=== PATIENT | male | born 1965 | race Two or more races ===

== ENCOUNTER 2019-09-28 14:43 | Inpatient (IN) | payer SELFPAY ==
[~2019-09-28] VITALS: Ht 165.1 cm; Wt 81.6 kg
--- NOTE | ~2019-09-28 | EC ---
PATIENT:ALAN HUNT DATE OF SERVICE: 09/28/19 SEX: M MEDICAL RECORD: [id number] DATE OF : 61 LOCATION:D.MS [place] AGE OF PATIENT: 53 ADMISSION DATE: 09/28/19 REFERRING PHYSICIAN: INTERPRETING PHYSICIAN: CHERYL TURK MD ECHOCARDIOGRAM REPORT ECHO CHARGES 4 ECHO COMPLETE Date: 10/03/19 CLINICAL DIAGNOSIS: STAPH/ACITIES ECHOCARDIOGRAPHIC MEASUREMENTS (adult normal given) AC root (d.<3.7cm) 3.3 cm LV Septum d (<1.2 cm> 1.5 cm Valve Excursion 1.8 cm LV Septum (systole) 1.7 cm Left Atria (s.<4.0cm> 5.1 cm LVPW d(<1.2cm) 2.0 cm RV (d.<2.3cm) 5.5 cm LVPW (sytole) 2.3 cm LV diastole(<5.6CM) 6.9 cm MV E-F(>70mm/sec) cm LV systole 4.6 cm LVOT Diameter 2.2 cm MV exc.(>10mm) 2.4 cm Est.ejection fraction (50-75%) % DOPPLER: LVIT cm/sec A 59.0 cm/sec E 88.0 cm/sec LA cm/sec RVSP 52 mmHg LVOT 137 cm/sec AOP1/2T m/s Asc. Ao 163 cm/sec RVOT 122 cm/sec RA cm/sec PA 169 cm/sec AV Gradient Peak 10.57mmHg AV Mean 6.383mmHg AV Area 3.2 cm MV Gradient Peak 4.67 mmHg MV Mean 1.83 mmHg MV Area cm COMMENTS: Secretary To Board Of Commissioners: Felicia LIN Care Trainer: 1 Dr. Turk TAPE# PACS Pericardial Effusion N DATE OF SERVICE: 10/03/2019 ECHOCARDIOGRAM FINDINGS: 1. Left ventricular chamber size is mildly dilated. Left ventricular systolic function is preserved at 55%. 2. Left atrium is enlarged at 5.1 cm. Right atrium and right ventricular chamber sizes are as well mildly dilated. 3. Valvular structures have normal structure and motion. ECHOCARDIOGRAM REPORT [id number] ALAN HUNT 4. Doppler interrogation reveals mild mitral regurgitation, mild tricuspid regurgitation, no other valvular insufficiency or stenosis. Pulmonary systolic pressure is estimated 52 mmHg. 5. No evidence of pericardial effusion or left ventricular thrombus. TRANSINT:[id number] Voice Confirmation ID: [id number] DOCUMENT ID: [id number] CHERYL TURK MD CC: [id number] DICTATION DATE: 10/03/19 125 HEALTH CARE / MEDICAL JOB TITLES: 10/03/19 1950 DIS IN 10/03/19 [facility] [address] [place] [id number]
[2019-09-28 15:19] VITALS: BP 142/80
[2019-09-28 15:25] LABS: BASOPHILS 0.2 % (0-2); EOSINOPHILS 0.8 % (0-7); IMMATURE GRANULOCYTES 1.2 % (0-5); LYMPHOCYTES 6.4 % (15-50); MCH 26.5 pg (26.0-34.0); MCHC 31.4 g/dL (31.0-37.0); MCV 84.6 fL (80.0-100.0); MEAN PLATELET VOLUME 10.5 fL (7.4-10.4); MONOCYTES 10.7 % (2-11); NEUTROPHILS 80.7 % (40-80); PLATELET COUNT 236 10x3/uL (130-400); RDW 16.7 % (11.5-14.5); WBC 6.1 10x3/uL (4.8-10.8)
[2019-09-28 15:33] LABS: INR 1.34 (0.85-1.17)
[2019-09-28 15:35] LABS: HEMOGLOBIN 6.9 g/dL (13.5-17.5)
[2019-09-28 15:51] LABS: CALC OSMOLALITY 280 mosm/kg (275-300); CALCIUM 7.4 mg/dL (8.5-10.1); CARBON DIOXIDE 23.4 mmol/L (21.0-32.0); CHLORIDE - SERUM 106 mmol/L (98-107); CREATININE - SERUM 3.8 mg/dL (0.6-1.3); GLUCOSE 97 mg/dL (74-106); POTASSIUM - SERUM 4.1 mmol/L (3.5-5.1); SODIUM 136 mmol/L (136-145); UREA NITROGEN 39 mg/dL (7-18); eGFR NON AFRICAN AMERICAN 18 mL/min (90-120)
[2019-09-28 15:55] LABS: ALBUMIN 1.1 g/dL (3.4-5.0); ALKALINE PHOSPHATASE 194 U/L (46-116); ALT (SGPT) 31 U/L (10-68); AMYLASE - SERUM 85 U/L (25-115); BILIRUBIN - TOTAL 0.31 mg/dL (0.2-1.3); LIPASE 310 U/L (73-393); PROTEIN - SERUM 6.1 g/dL (6.4-8.2)
[2019-09-28 15:56] LABS: TROPONIN-I < 0.017 ng/mL (0.000-0.060)
[2019-09-28 16:15] VITALS: BP 143/75
--- NOTE | 2019-09-28 16:37 | NUR ---
PT RECIEVED FROM ER, NO SIGNS OF DISTRESS. IV TO RIGHT AC PATENT NO REDNESS OR TENDERNESS. DENIES ANY FURTHER NEED AT THIS TIME. CALL LIGHT IN REACH. BED LOW POSITION. NO FAMILY AT BEDSIDE.
[2019-09-28 16:41] VITALS: BP 151/75
[2019-09-28 17:18] LABS: APPEARANCE CLEAR (CLEAR); BILIRUBIN NEGATIVE (NEGATIVE); COLOR YELLOW (YELLOW); GLUCOSE NEGATIVE (NEGATIVE); KETONE NEGATIVE (NEGATIVE); NITRITE NEGATIVE (NEGATIVE); PROTEIN 1+ mg/dL (NEGATIVE); SPECIFIC GRAVITY 1.015 (1.005-1.020); UROBILINOGEN NORMAL (NORMAL)
[2019-09-28 20:00] VITALS: BP 148/81
[2019-09-29] VITALS (11 sets, daily range): BP systolic 139–161; BP diastolic 75–89; BMI 29.9
[2019-09-29 01:20] LABS: HEMATOCRIT 23.9 % (42.0-54.0)
[2019-09-29 01:21] LABS: HEMOGLOBIN 7.5 g/dL (13.5-17.5)
[2019-09-29 06:12] LABS: BASOPHILS 0.2 % (0-2); EOSINOPHILS 1.6 % (0-7); HEMATOCRIT 24.7 % (42.0-54.0); HEMOGLOBIN 7.7 g/dL (13.5-17.5); IMMATURE GRANULOCYTES 0.9 % (0-5); LYMPHOCYTES 6.9 % (15-50); MCH 26.1 pg (26.0-34.0); MCHC 31.2 g/dL (31.0-37.0); MCV 83.7 fL (80.0-100.0); MEAN PLATELET VOLUME 10.1 fL (7.4-10.4); MONOCYTES 11.8 % (2-11); NEUTROPHILS 78.6 % (40-80); PLATELET COUNT 215 10x3/uL (130-400); RBC 2.95 10x6/uL (4.20-6.10); RDW 16.9 % (11.5-14.5); WBC 5.5 10x3/uL (4.8-10.8)
[2019-09-29 06:34] LABS: % SATURATION 14 % (15-55); ANION GAP 13.4 mmol/L (8-16); CALCIUM 7.1 mg/dL (8.5-10.1); CARBON DIOXIDE 23.1 mmol/L (21.0-32.0); CREATININE - SERUM 3.9 mg/dL (0.6-1.3); IRON 22 ug/dl (35-150); MAGNESIUM - SERUM 1.7 mg/dL (1.8-2.4); PHOSPHOROUS 4.6 mg/dL (2.5-4.9); POTASSIUM - SERUM 4.5 mmol/L (3.5-5.1); TOTAL IRON BIND CAPACITY 155 ug/dl (260-445); UNSAT IRON BIND CAPACITY 133 ug/dl (150-375)
[2019-09-29 06:41] LABS: INR 1.35 (0.85-1.17); PROTIME 16.1 SECONDS (11.6-15.0)
--- NOTE | 2019-09-29 07:10 | NUR ---
PT RESTING IN BED. NO SIGNS OF DISTRESS. IV TO RIGHT AC PATENT NO REDNESS OR TENDERNESS. ABDOMEN DISTENTED. GOING FOR PROCEDURE. DENIES ANY FURTHER NEED AT THIS TIME. CALL LIGHT IN REACH. BED LOW POSITION. NO FAMILY AT BEDSIDE AT THIS TIME.
[2019-09-29 11:10] LABS: PROTEIN - BODY FLUID 1.1 G/DL
[2019-09-29 12:10] LABS: EOS BF 1 %; MACROPHAGES BF 22 %; MESOTHELIALS BF 4 %; NEUT - BF 29 %
--- NOTE | 2019-09-29 16:02 | NUR ---
I have reviewed this patient and I concur with the Shift Assessment completed by the Licensed Practical Nurse today this shift.
--- NOTE | 2019-09-29 19:15 | NUR ---
PATIENT LYING IN BED SLEEPING. PAITENT OPENS EYES WHEN SPOKEN TO. PATIENT REQUESTED A SNACK AND PAIN MEDICINE. STATES HE HAS NO OTHER NEEDS AT THIS TIME. BED RAILS X2. CALL LIGHT AND BEDSIDE TABLE IN REACH.
[2019-09-29 21:51] LABS: HEMATOCRIT 27.4 % (42.0-54.0); HEMOGLOBIN 8.5 g/dL (13.5-17.5)
[2019-09-30 05:54] VITALS: BP 139/75
[2019-09-30 06:32] LABS: BASOPHILS 0.2 % (0-2); EOSINOPHILS 4.2 % (0-7); HEMATOCRIT 25.5 % (42.0-54.0); HEMOGLOBIN 7.8 g/dL (13.5-17.5); IMMATURE GRANULOCYTES 0.6 % (0-5); LYMPHOCYTES 6.7 % (15-50); MCH 25.8 pg (26.0-34.0); MCHC 30.6 g/dL (31.0-37.0); MCV 84.4 fL (80.0-100.0); MEAN PLATELET VOLUME 10.4 fL (7.4-10.4); MONOCYTES 10.8 % (2-11); NEUTROPHILS 77.5 % (40-80); PLATELET COUNT 203 10x3/uL (130-400); RBC 3.02 10x6/uL (4.20-6.10); RDW 16.9 % (11.5-14.5); WBC 5.3 10x3/uL (4.8-10.8)
[2019-09-30 06:44] LABS: INR 1.38 (0.85-1.17); PROTIME 16.4 SECONDS (11.6-15.0)
[2019-09-30 06:46] LABS: ANION GAP 11.3 mmol/L (8-16); CALCIUM 7.5 mg/dL (8.5-10.1); MAGNESIUM - SERUM 1.9 mg/dL (1.8-2.4); POTASSIUM - SERUM 4.3 mmol/L (3.5-5.1)
--- NOTE | 2019-09-30 08:00 | NUR ---
ASSESSMENT PER FLOW SHEET. PT IS WITHOUT DISTRESS.CALL LIGHT USE INSTRUCTED AND IS IN REACH.MONITOR FOR NEEDS.
[2019-09-30 09:47] VITALS: BP 162/83
[2019-09-30 10:45] VITALS: Ht 165.1 cm; Wt 81.6 kg
[2019-09-30 12:41] LABS: HEMATOCRIT 26.2 % (42.0-54.0); HEMOGLOBIN 8.2 g/dL (13.5-17.5)
[2019-09-30 13:36] VITALS: BP 147/75
--- NOTE | 2019-09-30 15:26 | MORECARE ---
CASE MANAGEMENT DISCHARGE SUMMARY PATIENT: ALAN HUNT UNIT: [id number] ADM DATE: 09/28/19 AGE: 53 : 61 SEX: M ROOM/BED: D.2222 AUTHOR: GARRET BALBUENA PHYSICIAN: REFERRING PHYSICIAN: YASMANY ANN MD DATE OF SERVICE: 09/30/19 Discharge Plan Patient Name: ALAN HUNT [facility] [facility] 1965 Planned Disposition: Anticipated Discharge Date: Discharge Date: Expected LOS: Initial Reviewer: [email or web address] Initial Review Date: 09/30/2019 Generated: 09/30/19 4:26 pm DCPIA - Discharge Planning Initial Assessment Updated by [email or web address]: Trina Tavares on 09/30/19 3:23 pm * Is the patient Alert and Oriented? Yes * How many steps to enter\exit or inside your home? 0/0 * PCP None * Preadmission Environment Homeless * ADLs Independent * Equipment None * List name and contact numbers for known caregivers / representatives who currently or will assist patient after discharge: Kareem Adair [facility] [address] - [phone] * Verbal permission to speak to the caregivers and representatives has been obtained from the patient. Yes * Community resources currently utilized None * Additional services required to return to the preadmission environment? No * Can the patient safely return to the preadmission environment? Yes * Has this patient been hospitalized within the prior 30 days at any hospital? No Patient Name: ALAN HUNT Page [id number] at 1526 All edits/amendments must be made on the electronic document DICTATION DATE: 09/30/19 1526 ASSOCIATE BUSINESS ANALYST: MOISES 09/30/19 152 RPT#: [id number] DC DATE: STATUS: ADM IN [facility] [address] [place] [address] END OF REPORT
--- NOTE | 2019-09-30 15:44 | MORECARE ---
CASE MANAGEMENT DISCHARGE SUMMARY PATIENT: ALAN HUNT UNIT: [id number] ADM DATE: 09/28/19 AGE: 53 : 61 SEX: M ROOM/BED: D.2222 AUTHOR: GARRET BALBUENA PHYSICIAN: REFERRING PHYSICIAN: YASMANY ANN MD DATE OF SERVICE: 09/30/19 Discharge Plan Patient Name: ALAN HUNT Facility: [facility]:[place] : 1965 Planned Disposition: Anticipated Discharge Date: Discharge Date: Expected LOS: Initial Reviewer: [email or web address] Initial Review Date: 09/30/2019 Generated: 09/30/19 4:44 pm Comments DCP- Discharge Planning Updated by [email or web address]: Trina Tavares on 09/30/19 2:[address] Patient Name: ALAN HUNT Admission Status: Elective Accout number: [id number] Admission Date: 09-28-2019 : 1965 Admission Diagnosis: Attending: YASMANY ANN Current LOS: 2 Anticipated DC Date: Planned Disposition: Primary Insurance: UNINSURED DISCOUNT PLAN Discharge Planning Comments: CM met with patient to discuss discharge planning/needs. He is homeless. He states he meets people that help him. His friend, Kareem, listed as electrical contacts adjuster helps him with money. I offered him a list of homeless shelters and food ramos. He refuses to take it from me. I asked him if I could leave it on his table and he says "no, I don't need it." He states he knows where the food ramos and homeless shelters are. He states he feels better and when the doctor says he can leave, he states "I'll just leave." I asked him if he may need help purchasing his medicine and he declines. CM will continue to follow and assist with discharge planning/needs. Manufacturing Technology Analyst: Trina Tavares DCPIA - Discharge Planning Initial Assessment Updated by [email or web address]: Trina Tavares on 09/30/19 3:23 pm * Is the patient Alert and Oriented? Yes * How many steps to enter\\exit or inside your home? 0/0 * PCP None * Preadmission Environment Homeless * ADLs Independent * Equipment None * List name and contact numbers for known caregivers / representatives who currently or will assist patient after discharge: Kareem man - [phone] * Verbal permission to speak to the caregivers and representatives has been obtained from the patient. Yes * Community resources currently utilized None * Additional services required to return to the preadmission environment? No * Can the patient safely return to the preadmission environment? Yes * Has this patient been hospitalized within the prior 30 days at any hospital? No Last DP export: 09/30/19 2:26 Patient Name: ALAN HUNT Page [phone] at 1544 All edits/amendments must be made on the electronic document DICTATION DATE: 09/30/191543 MOVIE EDITOR: MOISES 09/30/191543 RPT#: [id number] DC DATE: STATUS: ADM IN [facility] [address] [place] [address] END OF REPORT
--- NOTE | 2019-09-30 17:00 | NUR ---
IV RESITED TO LEFT FOREARM X1 STICK 22G. IV REMOVED FROM RIGHT FOREARM WITH CATH TIP INTACT. SOME TENDERNESS TO SITE WITH MINIMAL SWELLING NOTED.
[2019-09-30 17:54] VITALS: BP 152/83
--- NOTE | 2019-09-30 18:41 | NUR ---
REMAINS WITHOUT CHANGE.CONT PLAN OF CARE
[2019-09-30 20:00] VITALS: BP 163/82
[2019-10-01] VITALS: BP 150/82
--- NOTE | 2019-10-01 01:59 | NUR ---
PT RESTING IN BED. ALERT AND ORIENTED. NO SIGNS OF DISTRESS. BREATHING EVEN AND UNLABORED. IV SITE LT FA DRESSING CLEAN DRY AND INTACT. NO SIGNS OF INFECTION. ABD DISTENDED. LT LOWER ABD INCISION. BOWEL SOUNDS ACTIVE. NO LOWER LEG SWELLING PRESENT. WILL CONTINUE PLAN OF CARE. CALL LIGHT IN REACH. BED LOWERED AND LOCKED. BED RAILS UPX2.
--- NOTE | 2019-10-01 03:00 | NUR ---
I have reviewed this patient and I concur with the Shift Assessment completed by the Licensed Practical Nurse today this shift.
[2019-10-01 04:00] VITALS: BP 136/74
[2019-10-01 06:38] LABS: BASOPHILS 0.2 % (0-2); EOSINOPHILS 4.7 % (0-7); HEMATOCRIT 26.1 % (42.0-54.0); HEMOGLOBIN 8.3 g/dL (13.5-17.5); IMMATURE GRANULOCYTES 0.8 % (0-5); LYMPHOCYTES 6.5 % (15-50); MCH 26.7 pg (26.0-34.0); MCHC 31.8 g/dL (31.0-37.0); MCV 83.9 fL (80.0-100.0); MEAN PLATELET VOLUME 9.4 fL (7.4-10.4); MONOCYTES 11.7 % (2-11); NEUTROPHILS 76.1 % (40-80); PLATELET COUNT 229 10x3/uL (130-400); RBC 3.11 10x6/uL (4.20-6.10); RDW 16.7 % (11.5-14.5); WBC 6.3 10x3/uL (4.8-10.8)
[2019-10-01 06:53] LABS: ANION GAP 10.7 mmol/L (8-16); CALCIUM 7.3 mg/dL (8.5-10.1); CARBON DIOXIDE 27.5 mmol/L (21.0-32.0); CREATININE - SERUM 4.2 mg/dL (0.6-1.3); MAGNESIUM - SERUM 1.6 mg/dL (1.8-2.4); PHOSPHOROUS 4.5 mg/dL (2.5-4.9); POTASSIUM - SERUM 4.2 mmol/L (3.5-5.1)
[2019-10-01 06:56] LABS: INR 1.44 (0.85-1.17); PROTIME 16.9 SECONDS (11.6-15.0)
--- NOTE | 2019-10-01 08:00 | NUR ---
ASSESSMENT PER FLOW SHEET. PT IS WITHOUT DISTRESS.MONITOR FOR NEEDS
[2019-10-01 08:35] VITALS: BP 149/79
[2019-10-01 13:03] VITALS: BP 169/94
[2019-10-01 17:09] VITALS: BP 153/67
[2019-10-01 17:31] LABS: CREATININE - URINE 36.2 mg/dL (30-125); PRO/CRE RATIO URINE 3.7 mg/g; PROTEIN - URINE 135.2 mg/dL (0.0-11.9)
--- NOTE | 2019-10-01 18:38 | NUR ---
PAGE TO [facility] TO REPORT FOR GRAM POSS BC.
--- NOTE | 2019-10-01 18:40 | NUR ---
PT IS WITHOUT CHANGE FROM INTITIAL SHIFT ASSESSMENT.CONT PLAN OF CARE
--- NOTE | 2019-10-01 18:50 | NUR ---
CALL BACK FROM [facility].CALL TO RENAL TO BAN ABX FOR GRAM POS BC.
--- NOTE | 2019-10-01 19:00 | NUR ---
BEDSIDE REPORT RECEIVED AND CARE OF PT ASSUMED. PT LYING IN LOW SANDHU'S POSITION. IV TO LEFT FA PATENT WITH NS INFUSING AT KVO. WILL MONITOR FOR NEEDS.
--- NOTE | 2019-10-01 19:20 | NUR ---
CALLED [employer] ARCHITECT TO OVERRIDE VANC IVPB.
[2019-10-01 20:00] VITALS: BP 156/83
--- NOTE | 2019-10-01 20:46 | NUR ---
HS MEDICATIONS GIVEN.
[2019-10-02] VITALS: BP 153/81
[2019-10-02 04:00] VITALS: BP 151/80
[2019-10-02 05:59] LABS: BASOPHILS 0.2 % (0-2); EOSINOPHILS 4.4 % (0-7); HEMATOCRIT 27.8 % (42.0-54.0); HEMOGLOBIN 8.6 g/dL (13.5-17.5); IMMATURE GRANULOCYTES 0.5 % (0-5); MCH 25.9 pg (26.0-34.0); MCHC 30.9 g/dL (31.0-37.0); MCV 83.7 fL (80.0-100.0); MEAN PLATELET VOLUME 9.6 fL (7.4-10.4); MONOCYTES 10.9 % (2-11); PLATELET COUNT 272 10x3/uL (130-400); RBC 3.32 10x6/uL (4.20-6.10); RDW 16.6 % (11.5-14.5); WBC 6.6 10x3/uL (4.8-10.8)
[2019-10-02 06:12] LABS: INR 1.37 (0.85-1.17); PROTIME 16.3 SECONDS (11.6-15.0)
[2019-10-02 06:28] LABS: CALCIUM 7.3 mg/dL (8.5-10.1); CARBON DIOXIDE 27.1 mmol/L (21.0-32.0); CREATININE - SERUM 3.9 mg/dL (0.6-1.3); MAGNESIUM - SERUM 1.5 mg/dL (1.8-2.4); PHOSPHOROUS 4.3 mg/dL (2.5-4.9); POTASSIUM - SERUM 4.1 mmol/L (3.5-5.1); VANCOMYCIN - RANDOM 13.2 ug/mL (10.0-20.0)
--- NOTE | 2019-10-02 07:00 | NUR ---
LYING IN BED,AWAKENS INT. HE DENIES NEEDS.CALL LIGHT USE INSTRUCTED.
--- NOTE | 2019-10-02 08:00 | NUR ---
ASSESSMENT PER FLOW SHEET. PT IS WITHOUT DISTRESS.CALL LIGHT IN REACH
[2019-10-02 08:11] VITALS: BP 147/82
[2019-10-02 11:56] LABS: COMPLEMENT C4 19.5 mg/dL (17.4-52.2)
[2019-10-02 12:31] LABS: ERYTHROCYTE SEDIMENTATION RATE 100 mm/hr (0-20)
--- NOTE | 2019-10-02 14:39 | NUR ---
HOPES TO GO HOME SOON. HE HAS BEEN WITHOUT DISTRESS.MONITOR
[2019-10-02 16:33] VITALS: BP 142/70
--- NOTE | 2019-10-02 18:53 | NUR ---
URINE TO LAB ORDERED.PT IS WITHOUT DISTRESS.HE IS WITHOUT CHANGE FROM INITIAL SHIFT ASSESSMENT.CONT PLAN OF CARE
--- NOTE | 2019-10-02 19:00 | NUR ---
PATIENT LYIN IN BED. IV IN LEFT FA, SL, NO REDNESS OR SWELLING. PATIENT STATES HE HAS NO NEEDS AT THIS TIME. BED RAILS X2. CALL LIGHT AND BEDSIDE TABLE WITHIN REACH.
[2019-10-02 20:35] VITALS: BP 133/65
[2019-10-03 01:20] VITALS: BP 136/76
[2019-10-03 05:21] VITALS: BP 164/86
[2019-10-03 05:24] LABS: BASOPHILS 0.2 % (0-2); EOSINOPHILS 3.9 % (0-7); HEMATOCRIT 26.3 % (42.0-54.0); HEMOGLOBIN 8.2 g/dL (13.5-17.5); IMMATURE GRANULOCYTES 0.3 % (0-5); LYMPHOCYTES 6.9 % (15-50); MCHC 31.2 g/dL (31.0-37.0); MCV 83.5 fL (80.0-100.0); MEAN PLATELET VOLUME 10.1 fL (7.4-10.4); MONOCYTES 11.1 % (2-11); NEUTROPHILS 77.6 % (40-80); PLATELET COUNT 256 10x3/uL (130-400); RBC 3.15 10x6/uL (4.20-6.10); RDW 16.7 % (11.5-14.5); WBC 6.2 10x3/uL (4.8-10.8)
[2019-10-03 05:33] LABS: INR 1.37 (0.85-1.17); PROTIME 16.3 SECONDS (11.6-15.0)
[2019-10-03 05:45] LABS: ANION GAP 10.1 mmol/L (8-16); CALCIUM 7.5 mg/dL (8.5-10.1); CARBON DIOXIDE 27.8 mmol/L (21.0-32.0); CREATININE - SERUM 3.8 mg/dL (0.6-1.3); MAGNESIUM - SERUM 1.6 mg/dL (1.8-2.4); POTASSIUM - SERUM 3.9 mmol/L (3.5-5.1); VANCOMYCIN - RANDOM 17.8 ug/mL (10.0-20.0)
[2019-10-03 07:07] LABS: ALBUMIN 1.2 g/dL (3.4-5.0); BILIRUBIN - TOTAL 0.33 mg/dL (0.2-1.3); PROTEIN - SERUM 5.7 g/dL (6.4-8.2)
[2019-10-03 08:01] VITALS: BP 138/74
--- NOTE | 2019-10-03 08:15 | NUR ---
PATIENT IN BED WITH IV INTACT. NO COMPLAINTS OR SIGNS OF DISTRESS. FAMILY AT BEDSIDE. CALL LIGHT WITHIN REACH.
[2019-10-03 08:25] VITALS: BP 147/75
--- NOTE | 2019-10-03 10:45 | NUR ---
PATIENT IN BED WITH EYES CLOSED RESTING QUIETLY. NO COMPLAINTS OR SIGNS OF DISTRESS. CALL LIGHT WITHIN REACH.
[2019-10-03] MEDS ORDERED: ALDACTONE25 MG PO (10:54)
[2019-10-03] MEDS ORDERED: LASIX40 MG PO (10:54)
[2019-10-03] MEDS ORDERED: PROTONIX40 MG PO (10:55)
[2019-10-03] MEDS ORDERED: CARAFATE1 G PO (10:55)
--- NOTE | 2019-10-03 12:03 | MORECARE ---
CASE MANAGEMENT DISCHARGE SUMMARY PATIENT: ALAN HUNT UNIT: [id number] ADM DATE: 09/28/19 AGE: 53 : 61 SEX: M ROOM/BED: D.2222 AUTHOR: GARRET BALBUENA PHYSICIAN: REFERRING PHYSICIAN: YASMANY ANN MD DATE OF SERVICE: 10/03/19 Discharge Plan Patient Name: ALAN HUNT Facility: [facility]:[place] : 1965 Planned Disposition: Anticipated Discharge Date: Discharge Date: Expected LOS: Initial Reviewer: [email or web address] Initial Review Date: 09/30/2019 Generated: 10/03/19 1:03 pm Comments DCP- Discharge Planning Updated by [email or web address]: Trina Tavares on 10/03/19 10:[address] Patient Name: ALAN HUNT Encounter No: [id number] : 1965 Primary Insurance: UNINSURED DISCOUNT PLAN Anticipated DC Date: Planned Disposition: External Planned Provider: : DCP follow-up note: Patient in agreement with discharge plan. No changes to plan. He states a friend will pick him up for discharge. I asked if he would be able to get his 4 new RX and he states "God will provide." He states "I feel much better." I asked if he would like to see if case management could get his medicine for him for this month and he says "yes, if you can." I told him he would need to stop by [facility] pharmacy on [facility] for the RX. I have asked approval from Naida Tatum: Furosemide - 40mg PO twice a day - 11.11 #60 no refill Pantoprazole - 40mg oral twice a day 12.80 #60 no refill Spironolactone 25mg oral - take 50mg des a day #60 - 12.96 no refill Sucralfate 1GM 3 times a day before meals. #36 - 15.53 no refill Trina Tavares DCP- Discharge Planning Updated by [email or web address]: Trina Tavares on 09/30/19 2:[address] Patient Name: ALAN HUNT Admission Status: Elective Accout number: [id number] Admission Date: 09-28-2019 : 1965 Admission Diagnosis: Attending: YASMANY ANN Current LOS: 2 Anticipated DC Date: Planned Disposition: Primary Insurance: UNINSURED DISCOUNT PLAN Discharge Planning Comments: CM met with patient to discuss discharge planning/needs. He is homeless. He states he meets people that help him. His friend, Kareem, listed as personal support worker helps him with money. I offered him a list of homeless shelters and food ramos. He refuses to take it from me. I asked him if I could leave it on his table and he says "no, I don't need it." He states he knows where the food ramos and homeless shelters are. He states he feels better and when the doctor says he can leave, he states "I'll just leave." I asked him if he may need help purchasing his medicine and he declines. CM will continue to follow and assist with discharge planning/needs. University Services Program Associate: Trina Tavares DCPIA - Discharge Planning Initial Assessment Updated by [email or web address]: Trina Tavares on 09/30/19 3:23 pm * Is the patient Alert and Oriented? Yes * How many steps to enter\\exit or inside your home? 0/0 * PCP None * Preadmission Environment Homeless * ADLs Independent * Equipment None * List name and contact numbers for known caregivers / representatives who currently or will assist patient after discharge: Kareem Adair - friend - [phone] * Verbal permission to speak to the caregivers and representatives has been obtained from the patient. Yes * Community resources currently utilized None * Additional services required to return to the preadmission environment? No * Can the patient safely return to the preadmission environment? Yes * Has this patient been hospitalized within the prior 30 days at any hospital? No Last DP export: 09/30/19 2:44 Patient Name: ALAN HUNT Page [id number] at 1203 All edits/amendments must be made on the electronic document DICTATION DATE: 10/03/191202 MORTGAGE BRANCH MANAGER: MOISES 10/03/191202 RPT#: [id number] DC DATE: STATUS: ADM IN [facility] [address] [place] [address] END OF REPORT
--- NOTE | 2019-10-03 14:16 | NUR ---
PATIENT RECIEVED DC INSTRUCTIONS. VERBALIZED UNDERSTANDING. NO QUESTIONS AT THIS TIME. IV REMOVED WITH CATH TIP INTACT. CALL LIGHT WITHIN REACH. WAITING FOR TRANSPORTATION FOR DC. EXPLAINED TO ORAL SURGERY PHYSICIAN MEDS FROM [facility] [place]. VERBALIZED UNDERSTANDING.
--- NOTE | 2019-10-03 15:55 | NUR ---
ESCORTED OUT OF HOSPITAL. AMBULATED PATIENT TO ER WHERE FRIEND IS TO TAKE HIM HOME. PATIENT HAS PAPERWORK AND PERSONAL BELONGINGS.
[2019-10-04 05:08] LABS: HEPATITIS C ANTIBODY <0.1 S/CO RAT (0.0-0.9)
[2019-10-04 10:10] LABS: ANA REFLEX - DIRECT Negative (Negative)
[2019-10-04 11:09] LABS: SPE - A/G RATIO 0.4 (0.7-1.7); SPE - ALBUMIN 1.7 g/dL (2.9-4.4); SPE - ALPHA-1 GLOBULIN 0.4 g/dL (0.0-0.4); SPE - ALPHA-2 GLOBULIN 0.8 g/dL (0.4-1.0); SPE - BETA GLOBULIN 0.9 g/dL (0.7-1.3); SPE - GAMMA GLOBULIN 1.8 g/dL (0.4-1.8); SPE - M-SPIKE 0.4 g/dL (Not Observed); SPE - TOTAL PROTEIN 5.6 g/dL (6.0-8.5)
--- NOTE | 2019-10-04 11:31 | MORECARE ---
CASE MANAGEMENT DISCHARGE SUMMARY PATIENT: ALAN HUNT UNIT: [id number] ADM DATE: 09/28/19 AGE: 53 : 61 SEX: M ROOM/BED: D.2222 AUTHOR: GARRET BALBUENA PHYSICIAN: REFERRING PHYSICIAN: YASMANY ANN MD DATE OF SERVICE: 10/04/19 Discharge Plan Patient Name: ALAN HUNT Facility: [facility]:[place] : 1965 Planned Disposition: Anticipated Discharge Date: Discharge Date: 10/03/2019 Expected LOS: Initial Reviewer: [email or web address] Initial Review Date: 09/30/2019 Generated: 10/04/19 12:30 pm Comments DCP- Discharge Planning Updated by [email or web address]: Trina Tavares on 10/03/19 10:[address] Patient Name: ALAN HUNT Encounter No: [id number] : 1965 Primary Insurance: UNINSURED DISCOUNT PLAN Anticipated DC Date: Planned Disposition: External Planned Provider: : DCP follow-up note: Patient in agreement with discharge plan. No changes to plan. He states a friend will pick him up for discharge. I asked if he would be able to get his 4 new RX and he states "God will provide." He states "I feel much better." I asked if he would like to see if case management could get his medicine for him for this month and he says "yes, if you can." I told him he would need to stop by [facility] pharmacy on [facility] for the RX. I have asked approval from Naida Tatum: Furosemide - 40mg PO twice a day - 11.11 #60 no refill Pantoprazole - 40mg oral twice a day 12.80 #60 no refill Spironolactone 25mg oral - take 50mg des a day #60 - 12.96 no refill Sucralfate 1GM 3 times a day before meals. #36 - 15.53 no refill Trina Tavares DCP- Discharge Planning Updated by [id number]: Trina Tavares on 09/30/19 2:[address] Patient Name: ALAN HUNT Admission Status: Elective Accout number: [id number] Admission Date: 09-28-2019 : 1965 Admission Diagnosis: Attending: YASMANY ANN Current LOS: 2 Anticipated DC Date: Planned Disposition: Primary Insurance: UNINSURED DISCOUNT PLAN Discharge Planning Comments: CM met with patient to discuss discharge planning/needs. He is homeless. He states he meets people that help him. His friend, Kareem, listed as burial needs salesperson helps him with money. I offered him a list of homeless shelters and food ramos. He refuses to take it from me. I asked him if I could leave it on his table and he says "no, I don't need it." He states he knows where the food ramos and homeless shelters are. He states he feels better and when the doctor says he can leave, he states "I'll just leave." I asked him if he may need help purchasing his medicine and he declines. CM will continue to follow and assist with discharge planning/needs. Floor Cashier: Trina Tavares DCPIA - Discharge Planning Initial Assessment Updated by [email or web address]: Trina Tavares on 09/30/19 3:23 pm * Is the patient Alert and Oriented? Yes * How many steps to enter\\exit or inside your home? 0/0 * PCP None * Preadmission Environment Homeless * ADLs Independent * Equipment None * List name and contact numbers for known caregivers / representatives who currently or will assist patient after discharge: Kareem Adair - friend - [phone] * Verbal permission to speak to the caregivers and representatives has been obtained from the patient. Yes * Community resources currently utilized None * Additional services required to return to the preadmission environment? No * Can the patient safely return to the preadmission environment? Yes * Has this patient been hospitalized within the prior 30 days at any hospital? No Last DP export: 10/03/19 11:03 Patient Name: ALAN HUNT Page [id number] at 1131 All edits/amendments must be made on the electronic document DICTATION DATE: 10/04/19 1130 COMMERCIAL DRONE PILOT: MOISES 10/04/19 1130 RPT#: [id number] DC DATE:10/03/19 STATUS: DIS IN [facility] [address] [place] [address] END OF REPORT
[2019-10-06 15:09] LABS: UPE RAND - ALBUMIN 53.3 % (()); UPE RAND - ALPHA 1 GLOBULIN 7.2 % (()); UPE RAND - ALPHA 2 GLOBULIN 6.5 % (()); UPE RAND - BETA GLOBULIN 11.1 % (()); UPE RAND - GAMMA GLOBULIN 21.9 % (())
[2019-10-06 16:08] LABS: ANCA - ANTIMYELOPEROXIDASE <9.0 U/mL (0.0-9.0); ANCA - ANTIPROTEINASE 3 <3.5 U/mL (0.0-3.5); ANCA - ATYPICAL <1:20 titer (Neg:<1:20); ANCA - CYTOPLASMIC <1:20 titer (Neg:<1:20); ANCA - PERINUCLEAR <1:20 titer (Neg:<1:20)
== END 2019-10-03 16:08 | disposition home or self-care (01) | DRG 432 ==
LOC: D.ER 14:43 → D.MS 15:57 → D.SDCHOLD 09-29 12:34 → D.MS 10-03 16:08
PROVIDERS: Emergency Medicine; General Practice; Internal Medicine Nephrology; ADMIT Internal Medicine Nephrology; ATTEND Internal Medicine Nephrology
PROC: 0W9G3ZZ Drainage of Peritoneal Cavity, Percutaneous Approach (ICD-10-PCS; principal; 2019-09-29 09:12)
DX: K70.31 Alcoholic cirrhosis of liver with ascites (principal); E43 Unspecified severe protein-calorie malnutrition; N17.9 Acute kidney failure, unspecified; J90 Pleural effusion, not elsewhere classified; N18.4 Chronic kidney disease, stage 4 (severe); N04.9 Nephrotic syndrome with unspecified morphologic changes; D64.9 Anemia, unspecified; N28.89 Other specified disorders of kidney and ureter; R16.1 Splenomegaly, not elsewhere classified; I51.7 Cardiomegaly; E53.8 Deficiency of other specified B group vitamins; I12.9 Hypertensive chronic kidney disease with stage 1 through stage 4 chronic kidney disease, or unspecified chronic kidney disease; Z59.0 Homelessness

== ENCOUNTER 2020-02-16 19:19 | Inpatient (IN) | payer SELFPAY ==
[~2020-02-16] VITALS: Ht 165.1 cm; Wt 77.0 kg
[~2020-02-16 19:19] MED LIST: ALDACTONE25 MG PO; CARAFATE1 G PO; LASIX40 MG PO; PROTONIX40 MG PO
[2020-02-16 20:30] LABS: BASOPHILS 0.9 % (0-2); EOSINOPHILS 7.3 % (0-7); HEMATOCRIT 24.9 % (42.0-54.0); IMMATURE GRANULOCYTES 0.2 % (0-5); LYMPHOCYTES 7.7 % (15-50); MCH 26.5 pg (26.0-34.0); MCHC 28.9 g/dL (31.0-37.0); MCV 91.5 fL (80.0-100.0); MEAN PLATELET VOLUME 9.4 fL (7.4-10.4); NEUTROPHILS 71.9 % (40-80); RBC 2.72 10x6/uL (4.20-6.10); RDW 15.5 % (11.5-14.5); WBC 4.4 10x3/uL (4.8-10.8)
[2020-02-16 20:36] LABS: HEMOGLOBIN 7.2 g/dL (13.5-17.5); PLATELET COUNT 183 10x3/uL (130-400)
[2020-02-16 20:44] LABS: APTT 36.4 SECONDS (22.8-39.4); INR 1.14 (0.85-1.17); PROTIME 14.5 SECONDS (11.6-15.0)
[2020-02-16 20:59] LABS: ANION GAP 13.4 mmol/L (8-16); CALCIUM 7.3 mg/dL (8.5-10.1); CREATININE - SERUM 4.5 mg/dL (0.6-1.3); POTASSIUM - SERUM 4.4 mmol/L (3.5-5.1)
[2020-02-16 21:09] LABS: ALBUMIN 1.6 g/dL (3.4-5.0); BILIRUBIN - TOTAL 0.29 mg/dL (0.2-1.3); C-REACTIVE PROTEIN 7.8 mg/dL (0.0-0.9); MAGNESIUM - SERUM 2.3 mg/dL (1.8-2.4); PROTEIN - SERUM 6.5 g/dL (6.4-8.2); THYROID STIMULATING HORMONE 10.82 uIU/mL (0.36-3.74); TROPONIN-I 0.046 ng/mL (0.000-0.060)
--- NOTE | 2020-02-16 21:34 | NUR ---
PT GIVEN URINAL, DENIES ANY FURTHER NEEDS AT THIS TIME. CALL LIGHT WITHIN REACH. WILL CONTINUE TO MONITOR.
[2020-02-16 21:45] LABS: BILIRUBIN NEGATIVE (NEGATIVE); GLUCOSE NEGATIVE (NEGATIVE); KETONE NEGATIVE (NEGATIVE); NITRITE NEGATIVE (NEGATIVE); UROBILINOGEN NORMAL (NORMAL)
[2020-02-16 21:51] LABS: BACTERIA FEW /hpf (NEGATIVE); EPITHELIAL CELLS OCC /hpf (0-5); RED CELLS - URINE 0-5 /hpf (0-5); WHITE CELLS - URINE RARE /hpf (NEGATIVE)
[2020-02-16 22:00] LABS: UDS - AMPHET NEGATIVE QUAL (NEGATIVE); UDS - BARB NEGATIVE QUAL (NEGATIVE); UDS - BENZO NEGATIVE QUAL (NEGATIVE); UDS - COCAINE NEGATIVE QUAL (NEGATIVE); UDS - OPIATE NEGATIVE QUAL (NEGATIVE); UDS - PCP NEGATIVE QUAL (NEGATIVE); UDS - THC NEGATIVE QUAL (NEGATIVE)
[2020-02-16 23:29] VITALS: BP 170/97; BMI 32.8
[2020-02-17 04:00] VITALS: BP 185/99
[2020-02-17 05:11] LABS: BASOPHILS 0.7 % (0-2); EOSINOPHILS 9.9 % (0-7); LYMPHOCYTES 9.9 % (15-50); MCH 26.8 pg (26.0-34.0); MCHC 29.6 g/dL (31.0-37.0); MCV 90.6 fL (80.0-100.0); MEAN PLATELET VOLUME 9.9 fL (7.4-10.4); MONOCYTES 11.6 % (2-11); NEUTROPHILS 67.9 % (40-80); PLATELET COUNT 171 10x3/uL (130-400); RBC 2.54 10x6/uL (4.20-6.10); RDW 15.4 % (11.5-14.5); WBC 4.1 10x3/uL (4.8-10.8)
[2020-02-17 05:28] LABS: ALBUMIN 1.3 g/dL (3.4-5.0); ANION GAP 10.4 mmol/L (8-16); BILIRUBIN - TOTAL 0.26 mg/dL (0.2-1.3); CALCIUM 7.4 mg/dL (8.5-10.1); CARBON DIOXIDE 22.8 mmol/L (21.0-32.0); CREATININE - SERUM 4.6 mg/dL (0.6-1.3); MAGNESIUM - SERUM 2.2 mg/dL (1.8-2.4); PHOSPHOROUS 5.1 mg/dL (2.5-4.9); POTASSIUM - SERUM 4.2 mmol/L (3.5-5.1); PROTEIN - SERUM 6.3 g/dL (6.4-8.2); T4 THYROXIN - FREE 1.02 ng/dL (0.76-1.46)
[2020-02-17 06:14] LABS: HEMOGLOBIN 6.8 g/dL (13.5-17.5)
--- NOTE | 2020-02-17 06:24 | NUR ---
NOTIFIED RADHA HOPKINS APN OF CRITICAL HEMOGLOBIN. NO ORDERS TO TRANSFUSE AT THIS TIME.
--- NOTE | 2020-02-17 07:34 | NUR ---
ASSESSMENT DONE. DENIES NEEDS
[2020-02-17 10:17] VITALS: BP 165/102
--- NOTE | 2020-02-17 11:00 | NUR ---
I have reviewed this patient and I concur with the Shift Assessment completed by the Licensed Practical Nurse today this shift.
[2020-02-17 14:42] VITALS: BP 164/94
--- NOTE | 2020-02-17 16:25 | NUR ---
RETURN FROM IR, 4.7 L REMOVED FROM ABD. NO ANESTHESIA USED.
--- NOTE | 2020-02-17 17:10 | NUR ---
WITHOUT CHANGES OR DISTRESS NOTED AT THS TIME.
[2020-02-17 17:15] LABS: HEMATOCRIT 28.5 % (42.0-54.0); HEMOGLOBIN 8.4 g/dL (13.5-17.5)
--- NOTE | 2020-02-17 19:43 | NUR ---
PT CO PAIN AT INCISION SITE. REQUESTING PRN PAIN MEDICATION AT THIS TIME
--- NOTE | 2020-02-17 20:18 | NUR ---
PT FOUND RESTING COMFORTABLY EVEN RISE AND FALL OF CHEST, AROUSED TO VOICE, DENIES PAIN REQUESTS A CUP OF ICE AND ORANGE JUICE
[2020-02-17 21:21] VITALS: BP 176/107
--- NOTE | 2020-02-17 23:29 | NUR ---
PATIENT RECEIVED PRN PAIN MEDICATION PER REQUEST SEE MAR FOR ADMINISTRATION
[2020-02-18 00:01] VITALS: BP 162/90
[2020-02-18 04:00] VITALS: BP 144/77
--- NOTE | 2020-02-18 04:31 | NUR ---
PT RESTING COMFORTABLY, LAB AT BEDSIDE, DENIES NEEDS
--- NOTE | 2020-02-18 04:51 | NUR ---
PT REFUSING TELEMETRY
[2020-02-18 05:04] LABS: HEMATOCRIT 27.5 % (42.0-54.0); HEMOGLOBIN 8.5 g/dL (13.5-17.5); LYMPHOCYTES 9.4 % (15-50); MCH 27.7 pg (26.0-34.0); MCHC 30.9 g/dL (31.0-37.0); MCV 89.6 fL (80.0-100.0); MEAN PLATELET VOLUME 9.7 fL (7.4-10.4); NEUTROPHILS 72.4 % (40-80); PLATELET COUNT 168 10x3/uL (130-400); RDW 15.2 % (11.5-14.5)
[2020-02-18 05:08] LABS: RBC 3.07 10x6/uL (4.20-6.10)
[2020-02-18 05:22] LABS: ALBUMIN 1.5 g/dL (3.4-5.0); ANION GAP 11.2 mmol/L (8-16); BILIRUBIN - TOTAL 0.36 mg/dL (0.2-1.3); CALCIUM 7.7 mg/dL (8.5-10.1); CARBON DIOXIDE 24.9 mmol/L (21.0-32.0); CREATININE - SERUM 4.7 mg/dL (0.6-1.3); POTASSIUM - SERUM 4.1 mmol/L (3.5-5.1); PROTEIN - SERUM 6.9 g/dL (6.4-8.2)
--- NOTE | 2020-02-18 05:56 | NUR ---
PATIENT RECEIVED AM MEDICATIONS AND COFFEE PER REQUEST
--- NOTE | 2020-02-18 07:30 | NUR ---
LAYING SUPINE, RR EVEN AND UNLABORED. DENIES NEEDS OR PAIN AT THIS TIME. CALL LIGHT WITHIN REACH. BED IN LOWEST POSITION. WILL CONTINUE TO MONITOR.
[2020-02-18 08:36] VITALS: BP 146/82
[2020-02-18 12:46] VITALS: BP 170/71
--- NOTE | 2020-02-18 12:48 | NUR ---
I HAVE REVIEWED THIS PATIENT AND CONCUR WITH THE ASSESSMENT OF THE STAVE LOG RIPSAW OPERATOR FOR THIS SHIFT. RESTING IN BED, NO DISTRESS.
[2020-02-18 16:38] VITALS: BP 174/99
[2020-02-18 20:00] VITALS: BP 165/90
--- NOTE | 2020-02-18 20:00 | NUR ---
ALERT RESTING IN BED DENIES PAIN OR NEEDS AT THIS TIME SEE SHIFT ASSESSMENT, CALL LIGHT IN REACH
--- NOTE | 2020-02-18 22:00 | NUR ---
LACTULOSE GIVEN ORDERED, PT THEN UP TO SINK AND VOMITING
[2020-02-19] VITALS: BP 154/82
[2020-02-19 04:00] VITALS: BP 164/89
[2020-02-19 05:39] LABS: HEMATOCRIT 27.3 % (42.0-54.0); HEMOGLOBIN 8.5 g/dL (13.5-17.5); LYMPHOCYTES 8.3 % (15-50); MCH 27.7 pg (26.0-34.0); MCHC 31.1 g/dL (31.0-37.0); MCV 88.9 fL (80.0-100.0); NEUTROPHILS 78.3 % (40-80); PLATELET COUNT 146 10x3/uL (130-400); RBC 3.07 10x6/uL (4.20-6.10); RDW 14.8 % (11.5-14.5); WBC 4.2 10x3/uL (4.8-10.8)
[2020-02-19 05:53] LABS: ALBUMIN 1.4 g/dL (3.4-5.0); ANION GAP 10.6 mmol/L (8-16); BILIRUBIN - TOTAL 0.37 mg/dL (0.2-1.3); CALCIUM 7.5 mg/dL (8.5-10.1); CARBON DIOXIDE 24.6 mmol/L (21.0-32.0); CREATININE - SERUM 5.2 mg/dL (0.6-1.3); POTASSIUM - SERUM 4.2 mmol/L (3.5-5.1); PROTEIN - SERUM 6.6 g/dL (6.4-8.2)
[2020-02-19 08:26] VITALS: BP 156/87
[2020-02-19 12:49] VITALS: BP 104/90
[2020-02-19 15:59] VITALS: BP 163/89
--- NOTE | 2020-02-19 17:20 | NUR ---
I have reviewed this patient and I concur with the Shift Assessment completed by the Licensed Practical Nurse today this shift.
[2020-02-19 20:00] VITALS: BP 168/95
--- NOTE | 2020-02-19 22:06 | NUR ---
INITIAL ROUNDS COMPLETED AT 1915 HRS. PT DENIED ANY DISCOMFORT. ASSESSMENT COMPLETED AT 1940 HRS. VSS. ALERT AND ORIENTED TO PERSON, PLACE AND TIME. ARRIETA. IV TO R WRIST SL. LUNGS DIMINISHED IN BASES BILAT. ABD DISTENDED WITH ACTIVE BS NOTED. ARRIETA. PALPABLE PERIPHERAL PULSES. PM MEDS IGVEN.L IV OCCLUDEDA ND DC'D WITH CATHETER INTACT. NEW IV STARTED #20 TO LFA WITH ATTEMPT X2. PT TOLERATED ACTIVITY WELL. SR UP X1,CALL LIGHT WITHIN REACH.
--- NOTE | 2020-02-19 23:52 | NUR ---
PT RESTING WITH EYES CLOSED. RESP EVEN AND REGULAR. SR UP X1, CALL LIGHT WITHIN REACH.
[2020-02-20] VITALS: BP 157/84
--- NOTE | 2020-02-20 02:21 | NUR ---
APPLE JUICE GIVEN PER REQUEST. DENIES ANY DISCOMOFRT. CALL LIGHT WITHIN REACH.
[2020-02-20 04:00] VITALS: BP 156/83
--- NOTE | 2020-02-20 04:16 | NUR ---
PT RESTING WITH EYES CLOSED. RESP EVEN AND REGULAR. SR UP X1, CALL LIGHT WITHIN REACH.
--- NOTE | 2020-02-20 05:47 | NUR ---
VSS THROUGHOUT NIGHT. PT DENIED ANY DISCOMFORT. NEEDS MET; WILL CONTINUE TO MONITOR.
[2020-02-20 05:58] LABS: ALBUMIN 1.3 g/dL (3.4-5.0); ANION GAP 10.3 mmol/L (8-16); BILIRUBIN - TOTAL 0.31 mg/dL (0.2-1.3); CALCIUM 7.5 mg/dL (8.5-10.1); CARBON DIOXIDE 25.7 mmol/L (21.0-32.0); CREATININE - SERUM 5.4 mg/dL (0.6-1.3); PROTEIN - SERUM 6.1 g/dL (6.4-8.2); T4 THYROXIN - FREE 1.06 ng/dL (0.76-1.46); THYROID STIMULATING HORMONE 6.11 uIU/mL (0.36-3.74)
--- NOTE | 2020-02-20 07:22 | NUR ---
REPORT RECEVED FROM VALUE ENGINEER AND PATIENT CARE ASSUMED. PATIENT LAYING IN BED ON BACK AWAKE, ALERT AND ORIENTED X 4. PATIENT IS STABLE AND VSS. PATIENT DENIES ANY NEEDS OR PAIN. WILL CONTINUE WITH PLAN OF CARE. SR UP X 2 BED IN LOW POSITION AND CALL LIGHT IN REACH.
[2020-02-20 07:50] LABS: HEMOGLOBIN 7.8 g/dL (13.5-17.5); MCH 27.4 pg (26.0-34.0); MCHC 31.2 g/dL (31.0-37.0); MCV 87.7 fL (80.0-100.0); MEAN PLATELET VOLUME 10.1 fL (7.4-10.4); RBC 2.85 10x6/uL (4.20-6.10); RDW 14.4 % (11.5-14.5)
[2020-02-20 07:51] LABS: PLATELET COUNT 229 10x3/uL (130-400); WBC 6.3 10x3/uL (4.8-10.8)
[2020-02-20 08:35] VITALS: BP 168/90
[2020-02-20 09:08] LABS: THYROGLOBULIN ANTIBODY <1.0 IU/mL (0.0-0.9); THYROID PEROXIDASE ABS 25 IU/mL (0-34)
[2020-02-20 11:50] LABS: EOSINOPHILS 5 % (0-7); HOWELL JOLLY BODIES OCC; LYMPHOCYTES 15 % (15-50); MONOCYTES 8 % (2-11); NEUTROPHILS 72 % (40-80)
[2020-02-20 11:51] LABS: ACANTHOCYTES OCC; ANISOCYTOSIS OCC; CRENATED CELLS OCC; ROULEAUX OCC; SMUDGE CELLS OCC
[2020-02-20 11:52] LABS: PLATELET ESTIMATE NORMAL; PLATELET MORPHOLOGY PLT CLUMPS PRESENT
[2020-02-20 12:28] LABS: % SATURATION 15 % (15-55); IRON 32 ug/dl (35-150); TOTAL IRON BIND CAPACITY 207 ug/dl (260-445); UNSAT IRON BIND CAPACITY 175 ug/dl (150-375)
[2020-02-20 13:15] VITALS: BP 148/53
--- NOTE | 2020-02-20 15:30 | NUR ---
PATIENT LAYING IN BED WATCHING TV. INSTRUCTED PATIENT THAT STOOL SPECIMEN NEEDED. PATIENT HAS NOT HAD A BM DESPITE TAKING LACTULOSE. PATIENT IS STABLE AND VSS. PATIENT DENIES ANY NEEDS OR PAIN. WILL CONTINUE WITH PLAN OF CARE. SR UP X 2 BED IN LOW POSITION AND CALL LIGHT IN REACH.
[2020-02-20 18:23] VITALS: BP 158/94
--- NOTE | 2020-02-20 18:23 | NUR ---
PATIENT HAS HAD NO BM. ATTEMPTING TO GET STOOL SPECIMEN.
[2020-02-20 20:54] VITALS: BP 165/84
[2020-02-21 00:30] VITALS: BP 160/80
[2020-02-21 06:28] VITALS: BP 131/68
[2020-02-21 07:10] LABS: HEMATOCRIT 29.5 % (42.0-54.0); HEMOGLOBIN 9.2 g/dL (13.5-17.5); LYMPHOCYTES 9.3 % (15-50); MCH 27.5 pg (26.0-34.0); MCHC 31.2 g/dL (31.0-37.0); MCV 88.3 fL (80.0-100.0); MEAN PLATELET VOLUME 10.2 fL (7.4-10.4); NEUTROPHILS 72.2 % (40-80); RBC 3.34 10x6/uL (4.20-6.10); RDW 14.9 % (11.5-14.5)
[2020-02-21 07:14] LABS: PLATELET COUNT 168 10x3/uL (130-400); WBC 3.6 10x3/uL (4.8-10.8)
[2020-02-21 07:16] LABS: ALBUMIN 1.4 g/dL (3.4-5.0); ANION GAP 11.3 mmol/L (8-16); BILIRUBIN - TOTAL 0.31 mg/dL (0.2-1.3); CALCIUM 7.6 mg/dL (8.5-10.1); CARBON DIOXIDE 25.9 mmol/L (21.0-32.0); CREATININE - SERUM 5.4 mg/dL (0.6-1.3); POTASSIUM - SERUM 4.2 mmol/L (3.5-5.1); PROTEIN - SERUM 5.9 g/dL (6.4-8.2)
[2020-02-21 09:14] VITALS: BP 154/85
--- NOTE | 2020-02-21 14:36 | MORECARE ---
CASE MANAGEMENT DISCHARGE SUMMARY PATIENT: ALAN HUNT UNIT: [id number] ADM DATE: 02/16/20 AGE: 54 : 61 SEX: M ROOM/BED: D.2112 AUTHOR: GARRET BALBUENA PHYSICIAN: REFERRING PHYSICIAN: YASMANY ANN MD DATE OF SERVICE: 02/21/20 Discharge Plan Patient Name: ALAN HUNT Facility: [facility]:[place] : 1965 Planned Disposition: Home Anticipated Discharge Date: Discharge Date: Expected LOS: Initial Reviewer: [email or web address] Initial Review Date: 02/21/2020 Generated: 02/21/20 3:36 pm Comments DCP- Discharge Planning Updated by [email or web address]: Neeta Poole on 02/21/20 1:[address] Patient Name: ALAN HUNT Admission Status: ER Accout number: [id number] Admission Date: 02-16-2020 : 1965 Admission Diagnosis:SHORTNESS OF BREATH Attending: YASMANY ANN Current LOS: 5 Anticipated DC Date: Planned Disposition: Primary Insurance: UNINSURED DISCOUNT PLAN Discharge Planning Comments: CM met with patient at bedside after explaining CM role and obtaining verbal consent. Patient lives at home alone where he is independent with his care and plans to return there upon discharge. Patient feels this would be a safe discharge. CM discussed availability / needs of home health and medical equipment. Patient denies any discharge needs at this time. CM explained if he needs help with medications to let us know. Patient states he will have his friend drive him home upon discharge. CM will continue to follow and assist as needed with discharge planning / needs. Animal Control Supervisor: Neeta Poole DCPIA - Discharge Planning Initial Assessment Updated by [email or web address]: Neeta Poole on 02/21/20 2:32 pm * Is the patient Alert and Oriented? Yes * How many steps to enter\exit or inside your home? * PCP NO PCP * [facility] * Preadmission Environment Home Alone * ADLs Independent * Equipment None * List name and contact numbers for known caregivers / representatives who currently or will assist patient after discharge: JAMAL LORENZOBA [facility] - [phone] * Verbal permission to speak to the caregivers and representatives has been obtained from the patient. Yes * Community resources currently utilized None * Additional services required to return to the preadmission environment? No * Can the patient safely return to the preadmission environment? Yes * Has this patient been hospitalized within the prior 30 days at any hospital? No Patient Name: ALAN HUNT Page 50950 at 1436 All edits/amendments must be made on the electronic document DICTATION DATE: 02/21/201435 CLINICAL TEAM MANAGER: MOISES 02/21/201435 RPT#: [id number] DC DATE: STATUS: ADM IN [facility] [address] [place] [address] END OF REPORT
[2020-02-21 16:52] VITALS: BP 149/93
--- NOTE | 2020-02-21 17:55 | NUR ---
I have reviewed this patient and I concur with the Shift Assessment completed by the Licensed Practical Nurse today this shift.
[2020-02-21 20:00] VITALS: BP 162/91
--- NOTE | 2020-02-21 20:30 | NUR ---
EVENING ROUNDS COMPLETE. PT LAYING IN BED NO SIGNS OF DISTRESS. CL IN REACH, BED IN LOWEST POSITION. PT DENIES ANY PAIN OR NEEDS AT THIS TIME.
[2020-02-22] VITALS: BP 162/77
[2020-02-22 04:00] VITALS: BP 147/68
[2020-02-22 05:48] LABS: BASOPHILS 0.2 % (0-2); EOSINOPHILS 12.4 % (0-7); HEMATOCRIT 30.5 % (42.0-54.0); HEMOGLOBIN 9.1 g/dL (13.5-17.5); MCH 26.9 pg (26.0-34.0); MCHC 29.8 g/dL (31.0-37.0); MCV 90.2 fL (80.0-100.0); MONOCYTES 10.9 % (2-11); NEUTROPHILS 66.5 % (40-80); PLATELET COUNT 176 10x3/uL (130-400); RBC 3.38 10x6/uL (4.20-6.10); RDW 15.2 % (11.5-14.5)
[2020-02-22 06:22] LABS: ALBUMIN 1.4 g/dL (3.4-5.0); ANION GAP 10.3 mmol/L (8-16); BILIRUBIN - TOTAL 0.33 mg/dL (0.2-1.3); CALCIUM 7.7 mg/dL (8.5-10.1); CARBON DIOXIDE 25.9 mmol/L (21.0-32.0); CREATININE - SERUM 5.5 mg/dL (0.6-1.3); POTASSIUM - SERUM 4.2 mmol/L (3.5-5.1); PROTEIN - SERUM 5.9 g/dL (6.4-8.2)
[2020-02-22 09:35] VITALS: BP 140/67
[2020-02-22 11:08] VITALS: Ht 165.1 cm; Wt 77.0 kg
[2020-02-22] MEDS ORDERED: CHRONULAC30 ML PO (13:38)
[2020-02-22] MEDS ORDERED: LASIX40 MG PO (13:38)
[2020-02-22] MEDS ORDERED: PEPCID PO (13:39)
[2020-02-22 13:47] VITALS: BP 157/79
--- NOTE | 2020-02-22 14:55 | NUR ---
IV AND TELEMETRY DCD. DC PLANS GIVEN. UNDERSTANDING VOICED.
--- NOTE | 2020-02-22 15:52 | MORECARE ---
CASE MANAGEMENT DISCHARGE SUMMARY PATIENT: ALAN HUNT UNIT: [id number] ADM DATE: 02/16/20 AGE: 54 : 61 SEX: M ROOM/BED: D.2112 AUTHOR: GARRET BALBUENA PHYSICIAN: REFERRING PHYSICIAN: YASMANY ANN MD DATE OF SERVICE: 02/22/20 Discharge Plan Patient Name: ALAN HUNT Facility: [facility]:[place] : 1965 Planned Disposition: Home Anticipated Discharge Date: Discharge Date: 02/22/2020 Expected LOS: 0 Initial Reviewer: [email or web address] Initial Review Date: 02/21/2020 Generated: 02/22/20 4:52 pm Comments DCP- Discharge Planning Updated by [email or web address]: Neeta Poole on 02/21/20 1:[address] Patient Name: ALAN HUNT Admission Status: ER Accout number: [id number] Admission Date: 02-16-2020 : 1965 Admission Diagnosis:SHORTNESS OF BREATH Attending: YASMANY ANN Current LOS: 5 Anticipated DC Date: Planned Disposition: Primary Insurance: UNINSURED DISCOUNT PLAN Discharge Planning Comments: CM met with patient at bedside after explaining CM role and obtaining verbal consent. Patient lives at home alone where he is independent with his care and plans to return there upon discharge. Patient feels this would be a safe discharge. CM discussed availability / needs of home health and medical equipment. Patient denies any discharge needs at this time. CM explained if he needs help with medications to let us know. Patient states he will have his friend drive him home upon discharge. CM will continue to follow and assist as needed with discharge planning / needs. Lozenge Maker Helper: Neeta Poole DCPIA - Discharge Planning Initial Assessment Updated by [email or web address]: Neeta Poole on 02/21/20 2:32 pm * Is the patient Alert and Oriented? Yes * How many steps to enter\exit or inside your home? * PCP NO PCP * [facility] * Preadmission Environment Home Alone * ADLs Independent * Equipment None * List name and contact numbers for known caregivers / representatives who currently or will assist patient after discharge: JAMAL SOTELO [facility] - [phone] * Verbal permission to speak to the caregivers and representatives has been obtained from the patient. Yes * Community resources currently utilized None * Additional services required to return to the preadmission environment? No * Can the patient safely return to the preadmission environment? Yes * Has this patient been hospitalized within the prior 30 days at any hospital? No Last DP export: 02/21/20 1:36 p Patient Name: ALAN HUNT Page [id number] at 1552 All edits/amendments must be made on the electronic document DICTATION DATE: 02/22/201551 EDITOR SOUND: MOISES 02/22/201551 RPT#: [id number] DC DATE:02/22/20 STATUS: DIS IN [facility] [address] [place] [address] END OF REPORT
== END 2020-02-22 14:56 | disposition home or self-care (01) | DRG 441 ==
LOC: D.ER 19:19 → D.M2 21:38
PROVIDERS: Family Medicine; General Practice; Internal Medicine Nephrology; ADMIT Internal Medicine Nephrology; ATTEND Internal Medicine Nephrology
PROC: 0W9G3ZZ Drainage of Peritoneal Cavity, Percutaneous Approach (ICD-10-PCS; principal; 2020-02-17 15:46)
DX: K72.00 Acute and subacute hepatic failure without coma (principal); E43 Unspecified severe protein-calorie malnutrition; I50.33 Acute on chronic diastolic (congestive) heart failure; N17.9 Acute kidney failure, unspecified; R18.8 Other ascites; K76.6 Portal hypertension; I13.2 Hypertensive heart and chronic kidney disease with heart failure and with stage 5 chronic kidney disease, or end stage renal disease; N18.5 Chronic kidney disease, stage 5; E03.9 Hypothyroidism, unspecified; K74.60 Unspecified cirrhosis of liver; Z68.33 Body mass index [BMI] 33.0-33.9, adult; D63.1 Anemia in chronic kidney disease

== ENCOUNTER 2020-03-04 03:51 | Inpatient (IN) | payer SELFPAY ==
[2020-03-04] VITALS (9 sets, daily range): BP systolic 137–153; BP diastolic 70–84; Ht 165.1 cm; Wt 81.4 kg
[~2020-03-04] VITALS: Ht 165.1 cm; Wt 81.4 kg
[~2020-03-04 03:51] MED LIST changes: +CHRONULAC30 ML PO; +PEPCID PO
[2020-03-04 04:11] LABS: BASOPHILS 0.2 % (0-2); EOSINOPHILS 0.1 % (0-7); HEMATOCRIT 29.2 % (42.0-54.0); HEMOGLOBIN 8.9 g/dL (13.5-17.5); IMMATURE GRANULOCYTES 0.2 % (0-5); LYMPHOCYTES 5.2 % (15-50); MCHC 30.5 g/dL (31.0-37.0); MCV 88.5 fL (80.0-100.0); MEAN PLATELET VOLUME 10.4 fL (7.4-10.4); MONOCYTES 7.1 % (2-11); NEUTROPHILS 87.2 % (40-80)
[2020-03-04 04:20] LABS: PLATELET COUNT 215 10x3/uL (130-400)
[2020-03-04 04:28] LABS: ANION GAP 12.8 mmol/L (8-16); CALCIUM 7.8 mg/dL (8.5-10.1); CARBON DIOXIDE 25.1 mmol/L (21.0-32.0); CREATININE - SERUM 5.8 mg/dL (0.6-1.3); POTASSIUM - SERUM 3.9 mmol/L (3.5-5.1)
[2020-03-04 04:48] LABS: ALBUMIN 1.6 g/dL (3.4-5.0); BILIRUBIN - TOTAL 0.37 mg/dL (0.2-1.3); PROTEIN - SERUM 7.1 g/dL (6.4-8.2)
[2020-03-04 04:54] LABS: TROPONIN-I 0.125 ng/mL (0.000-0.060)
--- NOTE | 2020-03-04 05:00 | NUR ---
PLAN OF CARE DISCUSSED WITH PT. PT REPORTS HE HAS FINISHED CONSUMING ORAL CONTRAST FOR CT. RADIOLOGY NOTIFIED.
--- NOTE | 2020-03-04 06:00 | NUR ---
PT LEFT ED VIA STRETCHER FOR CT
--- NOTE | 2020-03-04 06:11 | NUR ---
PT RETURNED TO ED VIA STRETCHER FROM CT
[2020-03-04 06:38] LABS: MAGNESIUM - SERUM 2.2 mg/dL (1.8-2.4); PHOSPHOROUS 4.2 mg/dL (2.5-4.9)
--- NOTE | 2020-03-04 08:00 | NUR ---
REPORT RECIEVED ON PATIENT. PATIENT TO UNIT SOON.
[2020-03-04 08:08] LABS: INR 1.16 (0.85-1.17); PROTIME 14.8 SECONDS (11.6-15.0)
--- NOTE | 2020-03-04 08:28 | NUR ---
PATIENT RECEIVED TO ROOM 2106 FROM ED VIA STRETCHER. PATIENT AMBULATORY. PATIENT STATES HE ONLY TAKES MEDICATION FOR HIS "PRESSURE" AND TOOK IT YESTERDAY BUT STATES HE TAKES NO OTHER MEDICATION. PATIENT UNABLE TO TELL THIS NURSE THE NAME OF HIS MEDICATION BUT STATES IT MAKES HIM PEE. LYING IN BED, EYES OPEN, URINAL PROVIDED. ABD DISTENDED AND SOFT. CALL LIGHT WITHIN REACH. NO DISTRESS.
--- NOTE | 2020-03-04 11:07 | NUR ---
REQUESTED PAIN MEDICATION FROM [facility]. AWAITING NEW ORDERS. THANKED NNEKA.
--- NOTE | 2020-03-04 11:52 | NUR ---
RESTING IN BED, NO DISTRESS.
--- NOTE | 2020-03-04 13:12 | NUR ---
MEDICATED FOR PAIN AT THIS TIME. NO DISTRESS.
[2020-03-04 13:54] LABS: CKMB 0.8 U/L (0.0-3.6); CREATINE KINASE 127 UL (21-232)
[2020-03-04 13:56] LABS: TROPONIN-I 0.067 ng/mL (0.000-0.060)
--- NOTE | 2020-03-04 13:58 | NUR ---
TROPONIN RECEIVED AND LESS THAN VALUE RECEIVED EARLIER. PATIENT DENIES CHEST PAIN OR DISCOMFORT.
--- NOTE | 2020-03-04 14:26 | NUR ---
HERE, AMMONIA LEVELS REVIEWED AND GAVE ORDERS TO DECREASE LACTULOSE TO DAILY FROM TID. STILL AWAITING FOR PARACENTESIS TIME.
[2020-03-04 18:57] LABS: BILIRUBIN NEGATIVE (NEGATIVE); GLUCOSE NEGATIVE (NEGATIVE); KETONE NEGATIVE (NEGATIVE); NITRITE NEGATIVE (NEGATIVE); UROBILINOGEN NORMAL (NORMAL)
[2020-03-04 19:07] LABS: BACTERIA FEW /hpf (NEGATIVE); EPITHELIAL CELLS NSEEN /hpf (0-5); RED CELLS - URINE 0-5 /hpf (0-5); WHITE CELLS - URINE 0-5 /hpf (NEGATIVE)
[2020-03-04 19:13] LABS: CKMB 0.7 U/L (0.0-3.6); CREATINE KINASE 92 UL (21-232); TROPONIN-I 0.049 ng/mL (0.000-0.060)
[2020-03-04 19:22] LABS: CREATININE - URINE 86.4 mg/dL (30-125)
--- NOTE | 2020-03-04 19:23 | NUR ---
RECIEVED BEDSIDEE SHIFT REPORT. ALERT AND ORIENTED X4. UP AD SAUD TO B/R. ABDOMEN DISTENDED. IV TO LT WRIST SL. EDUCATED ON NPO STATUS AFTER MN. DENIES ANY NEEDS OR QUESTIONS. STATED " I'VE DONE THIS BEFORE."
[2020-03-05 00:30] VITALS: BP 157/81
[2020-03-05 01:30] LABS: CKMB 0.8 U/L (0.0-3.6); CREATINE KINASE 79 UL (21-232); TROPONIN-I 0.028 ng/mL (0.000-0.060)
[2020-03-05 04:30] VITALS: BP 145/80
[2020-03-05 05:16] LABS: BASOPHILS 0.3 % (0-2); EOSINOPHILS 2.5 % (0-7); HEMATOCRIT 25.6 % (42.0-54.0); HEMOGLOBIN 7.7 g/dL (13.5-17.5); IMMATURE GRANULOCYTES 0.3 % (0-5); LYMPHOCYTES 4.5 % (15-50); MCH 26.8 pg (26.0-34.0); MCHC 30.1 g/dL (31.0-37.0); MCV 89.2 fL (80.0-100.0); MEAN PLATELET VOLUME 10.4 fL (7.4-10.4); MONOCYTES 6.7 % (2-11); NEUTROPHILS 85.7 % (40-80); RBC 2.87 10x6/uL (4.20-6.10); RDW 15.1 % (11.5-14.5)
[2020-03-05 05:23] LABS: PLATELET COUNT 165 10x3/uL (130-400); WBC 7.1 10x3/uL (4.8-10.8)
[2020-03-05 05:28] LABS: % SATURATION 11 % (15-55); IRON 21 ug/dl (35-150); TOTAL IRON BIND CAPACITY 181 ug/dl (260-445); UNSAT IRON BIND CAPACITY 160 ug/dl (150-375)
[2020-03-05 05:50] LABS: ALBUMIN 1.3 g/dL (3.4-5.0); ANION GAP 10.6 mmol/L (8-16); BILIRUBIN - TOTAL 0.4 mg/dL (0.2-1.3); CALCIUM 7.7 mg/dL (8.5-10.1); CARBON DIOXIDE 26.6 mmol/L (21.0-32.0); CREATININE - SERUM 6.2 mg/dL (0.6-1.3); POTASSIUM - SERUM 4.2 mmol/L (3.5-5.1); PROTEIN - SERUM 6.2 g/dL (6.4-8.2)
--- NOTE | 2020-03-05 07:10 | NUR ---
REPORT RECEIVED. ASSESSMENT COMPLETE PER FLOW SHEET. PT DENIES NEEDS RESTING COMFORTABLY. WILL CONTINUE TO MONITOR
--- NOTE | 2020-03-05 08:12 | NUR ---
GEN [facility] AT BEDSIDE. NEW ORDERS RECEIVED.
[2020-03-05 10:37] VITALS: BP 145/85
[2020-03-05 14:17] VITALS: BP 140/79
[2020-03-05 19:47] VITALS: BP 146/86
--- NOTE | 2020-03-05 20:06 | NUR ---
REPORT RECEIVED AND ROUNDING COMPLETE, LAYING IN BED IN LOW FOWLERS, NO S/SX OF DISTRESS AT THIS TIME. PATIENT IS A&O X4. PATIENT STATES HE HAS NO NEEDS AT THIS TIME. PATIENT HAS A RIGHT AC PIV THAT IS SALINE LOCKED AT THIS TIME, EASILY FLUSHED, NO S/SX OF INFILTRATION. CALL LIGHT WITHIN REACH AND BED IN LOWEST LOCKED POSITION.
[2020-03-05 21:43] LABS: HEMATOCRIT 24.7 % (42.0-54.0)
[2020-03-05 21:55] LABS: HEMOGLOBIN 7.5 g/dL (13.5-17.5)
[2020-03-06 00:26] VITALS: BP 148/81
[2020-03-06 03:57] VITALS: BP 147/74
[2020-03-06 06:17] LABS: BASOPHILS 0.2 % (0-2); EOSINOPHILS 5.1 % (0-7); HEMATOCRIT 25.7 % (42.0-54.0); HEMOGLOBIN 7.7 g/dL (13.5-17.5); IMMATURE GRANULOCYTES 0.2 % (0-5); LYMPHOCYTES 5.3 % (15-50); MCH 26.6 pg (26.0-34.0); MCV 88.6 fL (80.0-100.0); MEAN PLATELET VOLUME 9.9 fL (7.4-10.4); MONOCYTES 10.7 % (2-11); NEUTROPHILS 78.5 % (40-80); PLATELET COUNT 135 10x3/uL (130-400); RDW 14.8 % (11.5-14.5); WBC 5.5 10x3/uL (4.8-10.8)
[2020-03-06 06:37] LABS: ALBUMIN 1.6 g/dL (3.4-5.0); ANION GAP 13.5 mmol/L (8-16); BILIRUBIN - TOTAL 0.42 mg/dL (0.2-1.3); CALCIUM 7.7 mg/dL (8.5-10.1); CARBON DIOXIDE 24.7 mmol/L (21.0-32.0); CREATININE - SERUM 6.3 mg/dL (0.6-1.3); POTASSIUM - SERUM 4.2 mmol/L (3.5-5.1)
[2020-03-06 09:00] VITALS: BP 112/85
[2020-03-06 12:00] VITALS: BP 166/93
--- NOTE | 2020-03-06 13:48 | NUR ---
BLOOD TRANSFUSION COMPLETE, IV FLUSHED.
--- NOTE | 2020-03-06 15:58 | MORECARE ---
CASE MANAGEMENT DISCHARGE SUMMARY PATIENT: ALAN HUNT UNIT: [id number] ADM DATE: 03/04/20 AGE: 54 : 61 SEX: M ROOM/BED: D.2106 AUTHOR: GARRET BALBUENA PHYSICIAN: REFERRING PHYSICIAN: YASMANY ANN MD DATE OF SERVICE: 03/06/20 Discharge Plan Patient Name: ALAN HUNT [facility] : 1965 Planned Disposition: Home Anticipated Discharge Date: Discharge Date: Expected LOS: Initial Reviewer: [email or web address] Initial Review Date: 03/06/2020 Generated: 03/06/20 4:57 pm DCPIA - Discharge Planning Initial Assessment Updated by [email or web address]: Trina Tavares on 03/06/20 3:57 pm * Is the patient Alert and Oriented? Yes * PCP None * Pharmacy [facility] * Preadmission Environment Homeless * ADLs Independent * Equipment None * List name and contact numbers for known caregivers / representatives who currently or will assist patient after discharge: Kareem Adair [facility] - [phone] * Verbal permission to speak to the caregivers and representatives has been obtained from the patient. No * Community resources currently utilized None * Additional services required to return to the preadmission environment? Yes * Can the patient safely return to the preadmission environment? No * Has this patient been hospitalized within the prior 30 days at any hospital? Yes Patient Name: ALAN HUNT Page 50759 at 1558 All edits/amendments must be made on the electronic document DICTATION DATE: 03/06/207 THEATRICAL TROUPER: MOISES 03/06/20 155 RPT#: [id number] DC DATE: STATUS: ADM IN [facility] [address] [place] [address] END OF REPORT
--- NOTE | 2020-03-06 16:07 | MORECARE ---
CASE MANAGEMENT DISCHARGE SUMMARY PATIENT: ALAN HUNT UNIT: [id number] ADM DATE: 03/04/20 AGE: 54 : 61 SEX: M ROOM/BED: D.2106 AUTHOR: GARRET BALBUENA PHYSICIAN: REFERRING PHYSICIAN: YASMANY ANN MD DATE OF SERVICE: 03/06/20 Discharge Plan Patient Name: ALAN HUNT Facility: [facility]:[place] : 1965 Planned Disposition: Home Anticipated Discharge Date: Discharge Date: Expected LOS: Initial Reviewer: [email or web address] Initial Review Date: 03/06/2020 Generated: 03/06/20 5:07 pm Comments DCP- Discharge Planning Updated by [email or web address]: Trina Tavares on 03/06/20 3:[address] Patient Name: ALAN HUNT Admission Status: ER Accout number: [id number] Admission Date: 03-04-2020 : 1965 Admission Diagnosis: Attending: YASMANY ANN Current LOS: 2 Anticipated DC Date: Planned Disposition: Home Primary Insurance: UNINSURED DISCOUNT PLAN Discharge Planning Comments: CM met with patient to complete initial dc planning assessment. CM educated patient on the CM role and verbal consent given by patient to complete assessment. Patient is homeless. He states the address on his face sheet is his friends house. I offered homeless skilled nursing list, he refuses. He states he knows where the homeless shelters are. I offered bus tickets to go to and from his follow up appointments and he declines. He states his friend will drive him home. He states he will need medication assistance. I have notified [facility] to let me know the dosages of his medication at discharge and I will bush them for case management approval to purchase. Wilmer states that they are not discharging patient today. At discharge patient plans to return to his homeless environment and feels this is a safe discharge. CM discussed availability of home health, rehab services, and medical equipment. Patient denied known discharge needs at this time, except for medication assistance. I have provided him with a GoodRx card to show at his pharmacy, voiced understanding. CM will continue to follow and will assist as needed with dc plans/needs. Rn Emergency: Trina Tavares DCPIA - Discharge Planning Initial Assessment Updated by [email or web address]: Trina Chaitanya on 03/06/20 3:57 pm * Is the patient Alert and Oriented? Yes * PCP None * Pharmacy [facility] * Preadmission Environment Homeless * ADLs Independent * Equipment None * List name and contact numbers for known caregivers / representatives who currently or will assist patient after discharge: Kareem Adair [facility] - [phone] * Verbal permission to speak to the caregivers and representatives has been obtained from the patient. No * Community resources currently utilized None * Additional services required to return to the preadmission environment? Yes * Can the patient safely return to the preadmission environment? No * Has this patient been hospitalized within the prior 30 days at any hospital? Yes Last DP export: 03/06/20 2:58 p Patient Name: ALAN HUNT Page [id number] at 1607 All edits/amendments must be made on the electronic document DICTATION DATE: 03/06/201606 END FRAZER: MOISES 03/06/201606 RPT#: [id number] DC DATE: STATUS: ADM IN [facility] [address] [place] [address] END OF REPORT
[2020-03-06 16:47] VITALS: BP 166/94
--- NOTE | 2020-03-06 19:30 | NUR ---
PT IN BED, AAO X 3, RESP EVEN AND UNLABORED. NO DISTRESS NOTED, CL IN REACH, SR UP X 2.
[2020-03-06 19:48] VITALS: BP 165/93
[2020-03-07 00:12] VITALS: BP 160/79
--- NOTE | 2020-03-07 02:37 | NUR ---
I have reviewed this patient and I concur with the Shift Assessment completed by the Licensed Practical Nurse today this shift.
[2020-03-07 04:55] VITALS: BP 141/84
[2020-03-07 06:18] LABS: BASOPHILS 0.2 % (0-2); EOSINOPHILS 7.3 % (0-7); HEMATOCRIT 28.5 % (42.0-54.0); IMMATURE GRANULOCYTES 0.2 % (0-5); LYMPHOCYTES 7.5 % (15-50); MCH 27.8 pg (26.0-34.0); MCHC 31.6 g/dL (31.0-37.0); MONOCYTES 11.6 % (2-11); NEUTROPHILS 73.2 % (40-80); PLATELET COUNT 149 10x3/uL (130-400); RBC 3.24 10x6/uL (4.20-6.10); RDW 14.7 % (11.5-14.5); WBC 4.8 10x3/uL (4.8-10.8)
[2020-03-07 06:40] LABS: ALBUMIN 1.5 g/dL (3.4-5.0); ANION GAP 11.9 mmol/L (8-16); BILIRUBIN - TOTAL 0.34 mg/dL (0.2-1.3); CALCIUM 7.6 mg/dL (8.5-10.1); CARBON DIOXIDE 24.1 mmol/L (21.0-32.0); CREATININE - SERUM 6.1 mg/dL (0.6-1.3); PROTEIN - SERUM 5.5 g/dL (6.4-8.2)
[2020-03-07 09:53] VITALS: BP 156/83
[2020-03-07] MEDS ORDERED: CHRONULAC30 ML PO (12:48)
[2020-03-07 13:33] VITALS: BP 159/88
--- NOTE | 2020-03-07 13:50 | NUR ---
DISCHARGE INSTRUCTIONS GIVEN AND EXPLAINED TO PT. PT HAS NO FURTHER QUESTIONS. CHART COPY SIGNED. RIGHT AC 20G IV DC'D WITH CATH INTACT. TELEMTRY DC'D AND RETURNED TO MONITOR STATION. PT STATES HIS RIDE IS OUTSIDE.
--- NOTE | 2020-03-07 14:00 | NUR ---
PT REFUSED NEED FOR WC. PROVIDER SERVICE REPRESENTATIVE WALKED WITH PT TO ENTRANCE AND PT LEFT WITH RIDE.
--- NOTE | 2020-03-07 15:26 | MORECARE ---
CASE MANAGEMENT DISCHARGE SUMMARY PATIENT: ALAN HUNT UNIT: [id number] ADM DATE: 03/04/20 AGE: 54 : 61 SEX: M ROOM/BED: D.2106 AUTHOR: GARRET BALBUENA PHYSICIAN: REFERRING PHYSICIAN: YASMANY ANN MD DATE OF SERVICE: 03/07/20 Discharge Plan Patient Name: ALAN HUNT Facility: [facility]:[place] : 1965 Planned Disposition: Home Anticipated Discharge Date: Discharge Date: 03/07/2020 Expected LOS: Initial Reviewer: [email or web address] Initial Review Date: 03/06/2020 Generated: 03/07/20 4:26 pm Comments DCP- Discharge Planning Updated by [email or web address]: Trina Tavares on 03/07/20 2:[address] Received discharge orders. Madeline Looney approved to pay for Furosemide 40mg PO daily #30 $6.00, Lactulose 30ml TID for 12.06 and Aldactone 25mg (50 po daily) for 30 day supply $6.36. He has been informed of medication at [facility] and given written instructions on address and he understands to spanish moss picker med at [facility]. Home today. DCP- Discharge Planning Updated by [email or web address]: Trina Siddiquilenore on 03/06/20 3:[address] Patient Name: ALAN HUNT Admission Status: ER Accout number: [id number] Admission Date: 03-04-2020 : 1965 Admission Diagnosis: Attending: YASMANY ANN Current LOS: 2 Anticipated DC Date: Planned Disposition: Home Primary Insurance: UNINSURED DISCOUNT PLAN Discharge Planning Comments: CM met with patient to complete initial dc planning assessment. CM educated patient on the CM role and verbal consent given by patient to complete assessment. Patient is homeless. He states the address on his face sheet is his friends house. I offered homeless fpc list, he refuses. He states he knows where the homeless shelters are. I offered bus tickets to go to and from his follow up appointments and he declines. He states his friend will drive him home. He states he will need medication assistance. I have notified [facility] Dominguez to let me know the dosages of his medication at discharge and I will bush them for case management approval to purchase. [facility] states that they are not discharging patient today. At discharge patient plans to return to his homeless environment and feels this is a safe discharge. CM discussed availability of home health, rehab services, and medical equipment. Patient denied known discharge needs at this time, except for medication assistance. I have provided him with a GoodRx card to show at his pharmacy, voiced understanding. CM will continue to follow and will assist as needed with dc plans/needs. Fruit Bar Maker: Trina Chaitanya DCPIA - Discharge Planning Initial Assessment Updated by [id number]: Trina Tavares on 03/06/20 3:57 pm * Is the patient Alert and Oriented? Yes * PCP None * Pharmacy [facility] * Preadmission Environment Homeless * ADLs Independent * Equipment None * List name and contact numbers for known caregivers / representatives who currently or will assist patient after discharge: Kareem Adair [facility] [address] - [phone] * Verbal permission to speak to the caregivers and representatives has been obtained from the patient. No * Community resources currently utilized None * Additional services required to return to the preadmission environment? Yes * Can the patient safely return to the preadmission environment? No * Has this patient been hospitalized within the prior 30 days at any hospital? Yes Last DP export: 03/06/20 3:08 p Patient Name: ALAN HUNT Page 00445 at 1526 All edits/amendments must be made on the electronic document DICTATION DATE: 03/07/201525 TEST ENGINE MECHANIC: MOISES 03/07/201525 RPT#: [id number] DC DATE:03/07/20 STATUS: DIS IN [facility] [address] [place] [address] END OF REPORT
--- NOTE | 2020-03-08 09:08 | MORECARE ---
CASE MANAGEMENT DISCHARGE SUMMARY PATIENT: ALAN HUNT UNIT: [id number] ADM DATE: 03/04/20 AGE: 54 : 61 SEX: M ROOM/BED: D.2106 AUTHOR: GARRET BALBUENA PHYSICIAN: REFERRING PHYSICIAN: YASMANY ANN MD DATE OF SERVICE: 03/08/20 Discharge Plan Patient Name: ALAN HUNT Facility: [facility]:[place] : 1965 Planned Disposition: Home Anticipated Discharge Date: Discharge Date: 03/07/2020 Expected LOS: Initial Reviewer: [email or web address] Initial Review Date: 03/06/2020 Generated: 03/08/20 10:07 am Comments DCP- Discharge Planning Updated by [email or web address]: Trina Siddiquilenore on 03/07/20 2:[address] Received discharge orders. Madeline Looney approved to pay for Furosemide 40mg PO daily #30 $6.00, Lactulose 30ml TID for 12.06 and Aldactone 25mg (50 po daily) for 30 day supply $6.36. He has been informed of medication at [facility] and given written instructions on address and he understands to picker and packer med at [facility]. Home today. DCP- Discharge Planning Updated by [email or web address]: Trina Chenlenore on 03/06/20 3:[address] Patient Name: ALAN HUNT Admission Status: ER Accout number: [id number] Admission Date: 03-04-2020 : 1965 Admission Diagnosis: Attending: YASMANY ANN Current LOS: 2 Anticipated DC Date: Planned Disposition: Home Primary Insurance: UNINSURED DISCOUNT PLAN Discharge Planning Comments: CM met with patient to complete initial dc planning assessment. CM educated patient on the CM role and verbal consent given by patient to complete assessment. Patient is homeless. He states the address on his face sheet is his friends house. I offered homeless group home list, he refuses. He states he knows where the homeless shelters are. I offered bus tickets to go to and from his follow up appointments and he declines. He states his friend will drive him home. He states he will need medication assistance. I have notified [facility] Dominguez to let me know the dosages of his medication at discharge and I will bush them for case management approval to purchase. [facility]. At discharge patient plans to return to his homeless environment and feels this is a safe discharge. CM discussed availability of home health, rehab services, and medical equipment. Patient denied known discharge needs at this time, except for medication assistance. I have provided him with a GoodRx card to show at his pharmacy, voiced understanding. CM will continue to follow and will assist as needed with dc plans/needs. Director Of Education: Trina Chaitanya DCPIA - Discharge Planning Initial Assessment Updated by [id number]: Trina Chaitanya on 03/06/20 3:57 pm * Is the patient Alert and Oriented? Yes * PCP None * Pharmacy [facility] * Preadmission Environment Homeless * ADLs Independent * Equipment None * List name and contact numbers for known caregivers / representatives who currently or will assist patient after discharge: Kareem Adair [facility] - [phone] * Verbal permission to speak to the caregivers and representatives has been obtained from the patient. No * Community resources currently utilized None * Additional services required to return to the preadmission environment? Yes * Can the patient safely return to the preadmission environment? No * Has this patient been hospitalized within the prior 30 days at any hospital? Yes Last DP export: 03/07/20 2:26 p Patient Name: ALAN HUNT Page 20221 at 0908 All edits/amendments must be made on the electronic document DICTATION DATE: 03/08/20906 RIGGING SUPERVISOR: MOISES 03/08/20906 RPT#: [id number] DC DATE:03/07/20 STATUS: DIS IN [facility] [address] [place] [address] END OF REPORT
== END 2020-03-07 14:00 | disposition home or self-care (01) | DRG 441 ==
LOC: D.ER 03:51 → D.M2 07:28 → D.SDCHOLD 03-07 10:15 → D.M2 03-07 10:18
PROVIDERS: Emergency Medicine; Internal Medicine; Radiology Vascular & Interventional Radiology; ADMIT Internal Medicine Nephrology; ATTEND Internal Medicine Nephrology
PROC: 0W9G3ZZ Drainage of Peritoneal Cavity, Percutaneous Approach (ICD-10-PCS; principal; 2020-03-05 10:00)
DX: K72.00 Acute and subacute hepatic failure without coma (principal); I50.33 Acute on chronic diastolic (congestive) heart failure; E43 Unspecified severe protein-calorie malnutrition; N17.9 Acute kidney failure, unspecified; I13.2 Hypertensive heart and chronic kidney disease with heart failure and with stage 5 chronic kidney disease, or end stage renal disease; R18.8 Other ascites; K76.6 Portal hypertension; I24.8 Other forms of acute ischemic heart disease; N18.5 Chronic kidney disease, stage 5; K74.60 Unspecified cirrhosis of liver; E03.9 Hypothyroidism, unspecified; Z68.30 Body mass index [BMI] 30.0-30.9, adult; D63.1 Anemia in chronic kidney disease; D50.9 Iron deficiency anemia, unspecified

== ENCOUNTER 2020-07-18 08:20 | Inpatient (IN) | payer SELFPAY ==
[~2020-07-18] VITALS: Ht 165.1 cm; Wt 89.3 kg
[2020-07-18 09:00] VITALS: BP 189/99
[2020-07-18 09:02] LABS: BASOPHILS 0.6 % (0-2); EOSINOPHILS 6.4 % (0-7); HEMATOCRIT 24.4 % (42.0-54.0); LYMPHOCYTES 12.7 % (15-50); MCH 28.7 pg (26.0-34.0); MCHC 30.3 g/dL (31.0-37.0); MCV 94.6 fL (80.0-100.0); MONOCYTES 11.4 % (2-11); NEUTROPHILS 68.9 % (40-80); PLATELET COUNT 128 10x3/uL (130-400); RBC 2.58 10x6/uL (4.20-6.10); RDW 15.9 % (11.5-14.5); WBC 3.6 10x3/uL (4.8-10.8)
[2020-07-18 09:09] LABS: HEMOGLOBIN 7.4 g/dL (13.5-17.5)
[2020-07-18 09:19] LABS: CALC OSMOLALITY 287 mosm/kg (275-300); CARBON DIOXIDE 22.4 mmol/L (21.0-32.0); CHLORIDE - SERUM 106 mmol/L (98-107); CREATININE - SERUM 5.3 mg/dL (0.6-1.3); GLUCOSE 127 mg/dL (74-106); POTASSIUM - SERUM 4.1 mmol/L (3.5-5.1); SODIUM 137 mmol/L (136-145); UREA NITROGEN 47 mg/dL (7-18); eGFR NON AFRICAN AMERICAN 12 mL/min (90-120)
[2020-07-18 09:34] LABS: ALBUMIN 1.9 g/dL (3.4-5.0); ALKALINE PHOSPHATASE 139 U/L (30-120); ALT (SGPT) 25 U/L (10-68); AMYLASE - SERUM 192 U/L (25-115); BILIRUBIN - TOTAL 0.31 mg/dL (0.2-1.3); CKMB 2.8 U/L (0.0-3.6); CREATINE KINASE 183 UL (21-232); LIPASE 377 U/L (73-393); MAGNESIUM - SERUM 2.6 mg/dL (1.8-2.4); PROTEIN - SERUM 6.8 g/dL (6.4-8.2); TROPONIN-I 0.033 ng/mL (0.000-0.060)
[2020-07-18 09:41] LABS: BILIRUBIN NEGATIVE (NEGATIVE); KETONE NEGATIVE (NEGATIVE); NITRITE NEGATIVE (NEGATIVE); UROBILINOGEN NORMAL mg/dL (< 2)
[2020-07-18 09:42] LABS: BACTERIA NONE SEEN HPF (NONE SEEN); EPITHELIAL CELLS 0-5 /hpf (0-5)
[2020-07-18 09:45] LABS: INR 1.1 (0.85-1.17); PROTIME 14.2 SECONDS (11.6-15.0)
[2020-07-18 09:46] LABS: APTT 35.3 SECONDS (22.8-39.4)
[2020-07-18 10:00] VITALS: BP 186/82
[2020-07-18 11:00] VITALS: BP 171/92
[2020-07-18 12:36] VITALS: BP 170/83; BMI 17.8; BMI 32.8
[2020-07-18 13:59] LABS: % SATURATION 13 % (15-55); IRON 34 ug/dl (35-150); TOTAL IRON BIND CAPACITY 248 ug/dl (260-445); UNSAT IRON BIND CAPACITY 214 ug/dl (150-375)
--- NOTE | 2020-07-18 14:30 | NUR ---
CONSENTS SIGNED FOR PARACENTESIS.
--- NOTE | 2020-07-18 14:32 | NUR ---
LEAVING FOR THORACENTESIS BY BED.
--- NOTE | 2020-07-18 15:57 | NUR ---
BACK FROM PARACENTESIS. DIET RESUMED.
[2020-07-18 17:21] LABS: CHOLESTEROL - BODY FLUID 4 mg/dL; TRIGLYCERIDE - BODY FLUID 318 mg/dL
[2020-07-18 19:28] LABS: NEUT - BF 10 %
[2020-07-18 19:29] LABS: EOS BF 3 %; MACROPHAGES BF 45 %; MESOTHELIALS BF 6 %
[2020-07-18 20:00] VITALS: BP 92/51
[2020-07-19 04:00] VITALS: BP 110/61
[2020-07-19 05:49] LABS: BASOPHILS 0.3 % (0-2); EOSINOPHILS 3.8 % (0-7); IMMATURE GRANULOCYTES 0.3 % (0-5); LYMPHOCYTES 4.6 % (15-50); MCH 28.1 pg (26.0-34.0); MCV 93.8 fL (80.0-100.0); MEAN PLATELET VOLUME 10.2 fL (7.4-10.4); MONOCYTES 5.1 % (2-11); NEUTROPHILS 85.9 % (40-80); PLATELET COUNT 120 10x3/uL (130-400); RBC 2.24 10x6/uL (4.20-6.10); RDW 16.2 % (11.5-14.5)
[2020-07-19 06:06] LABS: HEMOGLOBIN 6.3 g/dL (13.5-17.5)
[2020-07-19 06:19] LABS: ALBUMIN 1.9 g/dL (3.4-5.0); ANION GAP 13.1 mmol/L (8-16); BILIRUBIN - TOTAL 0.25 mg/dL (0.2-1.3); CALCIUM 7.4 mg/dL (8.5-10.1); CARBON DIOXIDE 20.4 mmol/L (21.0-32.0); CREATININE - SERUM 5.8 mg/dL (0.6-1.3); POTASSIUM - SERUM 4.5 mmol/L (3.5-5.1); PROTEIN - SERUM 6.3 g/dL (6.4-8.2)
[2020-07-19 07:36] VITALS: BP 114/58
--- NOTE | 2020-07-19 11:11 | NUR ---
IV RESTARTED TO RIGHT FA WITH 22 GAUGE CATH X 1 STICK BY ILEANA STOCK AND FLSHED WITH NS. LINE IS PATENT.
--- NOTE | 2020-07-19 12:40 | NUR ---
I TREID X 2 TO RESITE IV WITH GOOD FLASH BUT WOULD NOT FLUSH. I CALLED ED TO SEE IF THEY COULD ASSSIT US. STATES THEY HAVE ALREADY BEEN CALLED. I RELAYED THIS INFORMATION TO NICOLASA RN PRIMARY NURSE WHO ALSO STATES SHE ATTEMPTED. IV.
--- NOTE | 2020-07-19 13:11 | NUR ---
1ST UNIT PRBC STARTED. VS WNL. LINE IS PATENT.
[2020-07-19 13:45] VITALS: Ht 165.1 cm; Wt 89.3 kg
--- NOTE | 2020-07-19 16:12 | NUR ---
2ND UNIT PRBS STARTED WITHOUT ADVERSE REACTIONS NOTED.
--- NOTE | 2020-07-19 19:34 | NUR ---
SPOKE WITH CHANNING IN LAB, INFORMED HIM OF PTS STAT H&H THAT WAS ORDERED AT 18:34. CHANNING STATED THAT THEY WERE HAVING A HARD TIME GETTING BLOOD ON THIS PT BUT WILL TRY TO SEND SOMEONE OVER.
[2020-07-19 20:00] VITALS: BP 96/54
--- NOTE | 2020-07-19 21:56 | NUR ---
SPOKE WITH BEBA IN LAB, ASKED IF ANYONE CAN COME DRAW THIS PTS STAT H&H THAT WAS PUT IN AT 18:30, BEBA STATED THAT [facility]AGR[facility]I SHOULD BE OUT ON THE FLOOR DRAWING LABS.
[2020-07-19 22:05] LABS: HEMATOCRIT 26.3 % (42.0-54.0)
--- NOTE | 2020-07-19 22:20 | NUR ---
SPOKE WITH DEBI COLIN APN FOR RENAL, INFORMED HER OF PTS H&H, ORDERS GIVEN TO GO AHEAD AND INFUSE THE 3RD UNIT OF PRBCS. NOTIFIED BEBA IN LAB.
--- NOTE | 2020-07-19 22:45 | NUR ---
IV RESITED TO LOWER RIGHT FOREARM, 20 GUAGE, FIRST ATTEMPT, PT TOLERATED WELL. 3RD UNIT OF PRBCS INFUSING, VITALS STABLE.
[2020-07-20] VITALS: BP 105/63
[2020-07-20 04:00] VITALS: BP 109/55
--- NOTE | 2020-07-20 07:47 | NUR ---
PT RECEIVED ASLEEP IN BED. AROUSED TO VOICE. WAITING ON BREAKFAST.
[2020-07-20 07:53] LABS: BASOPHILS 0 % (0-2); EOSINOPHILS 8.6 % (0-7); HEMATOCRIT 28.6 % (42.0-54.0); HEMOGLOBIN 8.7 g/dL (13.5-17.5); IMMATURE GRANULOCYTES 0.5 % (0-5); LYMPHOCYTES 7.8 % (15-50); MCH 28.4 pg (26.0-34.0); MCHC 30.4 g/dL (31.0-37.0); MCV 93.5 fL (80.0-100.0); MEAN PLATELET VOLUME 10.8 fL (7.4-10.4); MONOCYTES 9.7 % (2-11); NEUTROPHILS 73.4 % (40-80); PLATELET COUNT 134 10x3/uL (130-400); RDW 16.6 % (11.5-14.5); WBC 3.8 10x3/uL (4.8-10.8)
[2020-07-20] MEDS ORDERED: ZPAK PO (08:05)
[2020-07-20 08:07] LABS: RBC 3.06 10x6/uL (4.20-6.10)
[2020-07-20 08:17] LABS: ANION GAP 13.9 mmol/L (8-16); BILIRUBIN - TOTAL 0.32 mg/dL (0.2-1.3); CALCIUM 7.2 mg/dL (8.5-10.1); CARBON DIOXIDE 19.9 mmol/L (21.0-32.0); CREATININE - SERUM 7.1 mg/dL (0.6-1.3); POTASSIUM - SERUM 4.8 mmol/L (3.5-5.1); PROTEIN - SERUM 6.1 g/dL (6.4-8.2)
[2020-07-20 10:44] VITALS: BP 123/69
--- NOTE | 2020-07-20 13:35 | NUR ---
PT'S DISCHARGE INSTRUCTIONS REVIEWED AND SIGNED. HE IS TO SPECIMEN BOSS SCRIPT AT [facility]. IV REMOVED, TELEMETRY OFF AND RETURNED. EATING AN ICE CREAM NOW.
--- NOTE | 2020-07-20 14:11 | NUR ---
PT WALKED OUT TO ER FOR RIDE HOME.
--- NOTE | 2020-07-20 14:58 | MORECARE ---
CASE MANAGEMENT DISCHARGE SUMMARY PATIENT: ALAN HUNT UNIT: [id number] ADM DATE: 07/18/20 AGE: 54 : 61 SEX: M ROOM/BED: D.2127 AUTHOR: GARRET BALBUENA PHYSICIAN: REFERRING PHYSICIAN: LIZ TAMAYO MD DATE OF SERVICE: 07/20/20 Discharge Plan Patient Name: ALAN HUNT [facility] [facility] 1965 Planned Disposition: Anticipated Discharge Date: Discharge Date: 07/20/2020 Expected LOS: 0 Initial Reviewer: [email or web address] Initial Review Date: 07/18/2020 Generated: 07/20/20 3:57 pm DCPIA - Discharge Planning Initial Assessment Updated by [email or web address]: Madeline Delgado on 07/20/20 2:55 pm * Is the patient Alert and Oriented? Yes * How many steps to enter\exit or inside your home? 0/0 * PCP none * [facility] * ADLs Independent * Equipment None * List name and contact numbers for known caregivers / representatives who currently or will assist patient after discharge: none * Verbal permission to speak to the caregivers and representatives has been obtained from the patient. N/A * Community resources currently utilized None * Additional services required to return to the preadmission environment? No * Can the patient safely return to the preadmission environment? Yes * Has this patient been hospitalized within the prior 30 days at any hospital? No Patient Name: ALAN HUNT Page [id number] at 1458 All edits/amendments must be made on the electronic document DICTATION DATE: 07/20/208 SLITTER PROCESSED FILM: MOISES 07/20/20 1458 RPT#: [id number] DC DATE:07/20/20 STATUS: DIS IN [facility] [address] [place] [address] END OF REPORT
--- NOTE | 2020-07-20 15:07 | MORECARE ---
CASE MANAGEMENT DISCHARGE SUMMARY PATIENT: ALAN HUNT UNIT: [id number] ADM DATE: 07/18/20 AGE: 54 : 61 SEX: M ROOM/BED: D.3116 AUTHOR: GARRET BALBUENA PHYSICIAN: REFERRING PHYSICIAN: LIZ TAMAYO MD DATE OF SERVICE: 07/20/20 Discharge Plan Patient Name: ALAN HUNT Facility: [facility]:[place] : 1965 Planned Disposition: Anticipated Discharge Date: Discharge Date: 07/20/2020 Expected LOS: 0 Initial Reviewer: [email or web address] Initial Review Date: 07/18/2020 Generated: 07/20/20 4:06 pm Comments DCP- Discharge Planning Updated by [email or web address]: Madeline Delgado on 07/20/20 1:[address] Patient Name: ALAN HUNT Admission Status: ER Accout number: [id number] Admission Date: 07-18-2020 : 1965 Admission Diagnosis:PNEUMONIA, UNSPECIFIED ORGANISM Attending: LIZ TAMAYO Current LOS: 2 Anticipated DC Date: Planned Disposition: Primary Insurance: UNINSURED DISCOUNT PLAN Discharge Planning Comments: CM met with patient to complete initial dc planning assessment. CM educated patient on the CM role and verbal consent given by patient to complete assessment. CM verified patient's address, phone number, and emergency contact phone numbers. Patient s homeless, but stays with friends. The patient plans to return to his previous arrangement and feels this is a safe discharge. CM discussed availability of home health, rehab services, and medical equipment. Patient states he can not afford home health or DME equipment, but is independent with his ADL's. Pt states he does not have any money for his medication at discharge. CM called [facility] pharmacy for voucher. Pt states his friend will take him to the pharmacy when he is discharged. Patient denies other known discharge needs at this time. Batter Mixer Helper: Madeline Delgado DCPIA - Discharge Planning Initial Assessment Updated by [email or web address]: Madeline Delgado on 07/20/20 2:55 pm * Is the patient Alert and Oriented? Yes * How many steps to enter\exit or inside your home? 0/0 * PCP none * [facility] * ADLs Independent * Equipment None * List name and contact numbers for known caregivers / representatives who currently or will assist patient after discharge: none * Verbal permission to speak to the caregivers and representatives has been obtained from the patient. N/A * Community resources currently utilized None * Additional services required to return to the preadmission environment? No * Can the patient safely return to the preadmission environment? Yes * Has this patient been hospitalized within the prior 30 days at any hospital? No Last DP export: 07/20/20 1:58 p Patient Name: ALAN HUNT Page [id number] at 1507 All edits/amendments must be made on the electronic document DICTATION DATE: 07/20/201505 DANCE HALL HOST/HOSTESS: MOISES 07/20/201505 RPT#: [id number] DC DATE:07/20/20 STATUS: DIS IN [facility] [address] [place] [address] END OF REPORT
--- NOTE | 2020-07-23 09:07 | MORECARE ---
CASE MANAGEMENT DISCHARGE SUMMARY PATIENT: ALAN HUNT UNIT: [id number] ADM DATE: 07/18/20 AGE: 54 : 61 SEX: M ROOM/BED: D.0178 AUTHOR: GARRET BALBUENA PHYSICIAN: REFERRING PHYSICIAN: LIZ TAMAYO MD DATE OF SERVICE: 07/23/20 Discharge Plan Patient Name: ALAN HUNT Facility: [facility]:[place] : 1965 Planned Disposition: Anticipated Discharge Date: Discharge Date: 07/20/2020 Expected LOS: 0 Initial Reviewer: [email or web address] Initial Review Date: 07/18/2020 Generated: 07/23/20 10:06 am Comments DCP- Discharge Planning Updated by [email or web address]: Madeline Delgado on 07/20/20 1:[address] Patient Name: ALAN HUNT Admission Status: ER Accout number: [id number] Admission Date: 07-18-2020 : 1965 Admission Diagnosis:PNEUMONIA, UNSPECIFIED ORGANISM Attending: LIZ TAMAYO Current LOS: 2 Anticipated DC Date: Planned Disposition: Primary Insurance: UNINSURED DISCOUNT PLAN Discharge Planning Comments: CM met with patient to complete initial dc planning assessment. CM educated patient on the CM role and verbal consent given by patient to complete assessment. CM verified patient's address, phone number, and emergency contact phone numbers. Patient s homeless, but stays with friends. The patient plans to return to his previous arrangement and feels this is a safe discharge. CM discussed availability of home health, rehab services, and medical equipment. Patient states he can not afford home health or DME equipment, but is independent with his ADL's. Pt states he does not have any money for his medication at discharge. CM called [facility] pharmacy for voucher. Pt states his friend will take him to the pharmacy when he is discharged. Patient denies other known discharge needs at this time. Motor Vehicle Parts Interpreter: Madeline Delgado DCPIA - Discharge Planning Initial Assessment Updated by [email or web address]: Madeline Delgado on 07/20/20 2:55 pm * Is the patient Alert and Oriented? Yes * How many steps to enter\exit or inside your home? 0/0 * PCP none * [facility] * ADLs Independent * Equipment None * List name and contact numbers for known caregivers / representatives who currently or will assist patient after discharge: none * Verbal permission to speak to the caregivers and representatives has been obtained from the patient. N/A * Community resources currently utilized None * Additional services required to return to the preadmission environment? No * Can the patient safely return to the preadmission environment? Yes * Has this patient been hospitalized within the prior 30 days at any hospital? No Last DP export: 07/20/20 2:07 p Patient Name: ALAN HUNT Page 04113 at 0907 All edits/amendments must be made on the electronic document DICTATION DATE: 07/23/20905 DISTRIBUTION DRIVER: MOISES 07/23/20905 RPT#: [id number] DC DATE:07/20/20 STATUS: DIS IN [facility] [address] [place] [address] END OF REPORT
== END 2020-07-20 14:12 | disposition home or self-care (01) | DRG 432 ==
LOC: D.ER 08:20 → D.EDHOLD 10:42 → D.M2 10:42
PROVIDERS: Family Medicine; Internal Medicine Nephrology; Radiology Vascular & Interventional Radiology; ADMIT Family Medicine; ATTEND Family Medicine
PROC: 0W9G3ZZ Drainage of Peritoneal Cavity, Percutaneous Approach (ICD-10-PCS; principal; 2020-07-18 14:30)
DX: K70.31 Alcoholic cirrhosis of liver with ascites (principal); J18.9 Pneumonia, unspecified organism; I50.33 Acute on chronic diastolic (congestive) heart failure; I13.0 Hypertensive heart and chronic kidney disease with heart failure and stage 1 through stage 4 chronic kidney disease, or unspecified chronic kidney disease; N17.9 Acute kidney failure, unspecified; N18.4 Chronic kidney disease, stage 4 (severe); D61.818 Other pancytopenia; D63.1 Anemia in chronic kidney disease; Z66 Do not resuscitate